=== PATIENT | male | born 1970 | race Caucasian/White ===

== ENCOUNTER → 2016-08-15 | Outpatient (CLI) | payer BC ==
--- NOTE | 2016-08-15 19:44 | CONS ---
DATE OF CONSULTATION: 08/15/2016 CONSULTATION/NEW PATIENT EVALUATION HISTORY OF PRESENT ILLNESS/SLEEP-WAKE EVALUATION: 46-year-old gentleman who has been evaluated in the sleep center for obstructive sleep apnea-hypopnea syndrome. SLEEP SCHEDULE: Patient had been diagnosed with obstructive sleep apnea about 12 years ago. At that time was started on treatment with CPAP but for a different reasons was not able to use it and quit at about 7 years ago. Presently, his sleep schedule is from 10:00 p.m. until 6:00 a.m. basically 7 days a week. FALLING ASLEEP: Sometimes he has problem with falling asleep. He has a TV set in bedroom sometimes keeps a TV while he is sleeping. DURING SLEEP: He sleeps in different positions including side and sometimes in the chair. He wakes up from sleep up to 6 times with up to 4 episodes of nocturia. He snores, has episodes of stopped breathing, witnessed episodes of stopped breathing by his , awakenings with a dry mouth. DURING THE DAY/WAKE STATE: In the morning he wakes up tired, has difficulties to pay attention, falling asleep during the day, has problems with memory, concentration, irritability, depression, and anxiety. [place] Sleepiness Scale significantly increased to 12. PAST MEDICAL HISTORY: Positive for diabetes, hyperlipidemia, knee arthritis, headaches, acid reflux. Neck pain and back pain. Left-sided spontaneous pneumothorax x2 in 1990. PAST SURGICAL HISTORY: Neck surgery, surgery for pneumothorax, shoulder surgery for rotator cuff, on the left side. MEDICATIONS: 1. ( ). 2. Janumet. 3. Simvastatin. 4. Lisinopril. 5. Fluticasone spray. 6. Multivitamins. 7. Cyclobenzaprine. 8. Omeprazole. SOCIAL HISTORY: Positive for smoking less than 1 pack a day for 5 years; quit in 1990, alcohol consumption rarely. REVIEW OF SYSTEMS: Awakenings from sleep, sleepiness during the day, pain in the back of the neck. No fevers. No double vision. No recent chest pain. No shortness of breath. No abdominal pain. No bleeding episodes. No blood in urine. No seizure episodes. FAMILY HISTORY: Hypertension, heart problems, hyperlipidemia, arthritis, sinus headaches, sleep apnea, snoring, headaches, acid reflux, ulcers, diabetes, during sleep, restless legs. PHYSICAL EXAMINATION: 46-year-old gentleman without distress. BP 106/83, HR 79, RR 18, height 71 and 3 quarters, weight 240.4. BMI 32.8. Neck 17 inches in circumference. Temperature 97.9, oxygen saturation at room air 95%. HEENT: Oropharynx extremely low position of soft palate. Mallampati IV. Nose restriction of nasal breathing significantly on the left side, possibly nasal septum deviation. NECK: Supple. No JVD. Thyroid is not palpable. LUNGS: Clear to percussion and to auscultation. Good air exchange. No wheezing or rhonchi. HEART: S1, S2 regular. No murmurs, gallops or rubs. ABDOMEN: Slightly obese comparing. oft and nontender. Bowel sounds are present. No organomegaly appreciated. EXTREMITIES: No clubbing or cyanosis. AUTOMOTIVE TIRE TECHNICIAN: Awake, alert, and oriented x3. Cranial nerves 2 to 7 intact. There is no fasciculation or atrophy noted. No focal deficits observed. IMPRESSION: 1. Snoring, witnessed episodes of stopped breathing during sleep, extremely low position of soft palate, history of obstructive sleep apnea-hypopnea syndrome in the past, sleepiness, obstructive sleep apnea-hypopnea syndrome. 2. Obesity, body mass index of 32.8. 3. Diabetes mellitus. 4. Hyperlipidemia. 5. Knee arthritis. 6. Headaches. 7. Acid reflux. 8. Neck pain. 9. Back pain. 10. History of spontaneous pneumothorax x2 on the left side in 1990 status post surgical treatment. 11. Status post neck surgery. 12. Status post shoulder surgery in the left side for rotator cuff. PLAN: 1. Home sleep apnea test for evaluation of patient's breathing during sleep. 2. CPAP titration for evaluation of effective pressure for correction of respiratory abnormalities. I would not recommend out titration without machine because patient has history of spontaneous pneumothorax in the past. 3. Preferable position during sleep on the side. 4. No driving if patient feels any sleepiness. Patient is aware of civil and criminal liability for unsafe driving. 5. I will see patient for follow-up visit to explain results of the testing and following plan. Thank you for referring this patient for consultation. Sincerely, Moises Ramey MD, PhD, FAASM. Diplomat of [place] [employer], Sleep Medicine Board by [place] [employer] Board of [employer] Medicine Quality Assurance Manager of [facility] [place]
== END | disposition home or self-care (01) ==
LOC: SLEEP 16:04
PROVIDERS: ATTEND Internal Medicine
DX: G47.33 Obstructive sleep apnea (adult) (pediatric) (principal); E66.9 Obesity, unspecified; Z68.32 Body mass index [BMI] 32.0-32.9, adult; E11.9 Type 2 diabetes mellitus without complications; E78.5 Hyperlipidemia, unspecified; M17.0 Bilateral primary osteoarthritis of knee; R51 Headache; K21.9 Gastro-esophageal reflux disease without esophagitis; M54.2 Cervicalgia; M54.9 Dorsalgia, unspecified; Z98.890 Other specified postprocedural states; Z79.899 Other long term (current) drug therapy; Z87.898 Personal history of other specified conditions
CPT/HCPCS: 99211

== ENCOUNTER → 2016-12-12 | Outpatient (CLI) | payer BC ==
--- NOTE | 2016-12-12 17:26 | PN ---
46-year-old gentleman who has been followed in the sleep center for treatment of severe obstructive sleep apnea-hypopnea syndrome. Recently patient had diagnostic sleep study and CPAP titration and I discussed results of sleep test with patient in detail. He has severe obstructive sleep apnea and on CPAP at 14 cm of water patient's respiration was on control. With lower pressure, patient continued to have some abnormalities of respiration. He was started on treatment with a pressure at 9 cm of water, but patient continued to have respiratory abnormalities and pressure was adjusted up to 11 cm of water. With this pressure, patient came for appointment. I checked his CPAP unit. Pressure was 11 cm of water. Leak 28 liters per minute and with this pressure, apnea-hypopnea index reading is 15.7. Patient continues to wake up from sleep with choking and gasping for air and this is the reason why he cannot use machine well. Usage is only 7 out of 30 days and none of the days it was not used for more than 4 hours. Patient also has difficulties to breathe through the full face mask because according to him he could breathe only through the mouth and with this type of fullface mask which he has now, he cannot open his mouth during the sleep and he believes that also could be the reason for difficulties to breathe. MEDICATIONS: 1. ( ). 2. Janumet. 3. Simvastatin. 4. Lisinopril. 5. Fluticasone spray. 6. Cyclobenzaprine. 7. Omeprazole. [place] Sleepiness Scale is 13. During physical exam, the patient in no distress. VITAL SIGNS: BP 151/98, HR 64, RR 16. Weight 240, temperature 98.1. Oxygen saturation at room air 95%. Oropharynx, extremely low position of soft palate. Neck: Supple. No JVD. Thyroid is not palpable. LUNGS: Clear to percussion and to auscultation. Good air exchange. No wheezing or rhonchi. HEART: S1, S2 regular. No murmurs, gallops, or rubs. ABDOMEN: Soft and nontender. Bowel sounds are present. No organomegaly appreciated. EXTREMITIES: No clubbing or cyanosis. SALESPERSON WIGS: Awake, alert, and oriented x3. Cranial nerves 2 to 7 intact. There is no fasciculation or atrophy noted. No focal deficits observed. IMPRESSION: 1. Severe obstructive sleep apnea/hypopnea syndrome. Apnea-hypopnea index 36.3 with oxygen desaturation to 80% on control with CPAP at 14 cm of water by results of CPAP titration treatment. The patient was started at the lower pressure because of history of spontaneous pneumothorax but he continued to have abnormalities of respiration with a pressure 11 and wake up with choking, gasping for air, and could not use machine at that pressure. 2. History of spontaneous pneumothorax but after this diagnosis. Patient has history of using CPAP with quite high pressure around 18 without any problem related to the lungs. 3. Some ( ) during titration. 4. Obesity. 5. Diabetes mellitus. 6. Hyperlipidemia. 7. Knee arthritis. 8. Headaches. 9. Acid reflux. 10. Neck pain. 11. Back pain. PLAN: 1. I adjusted pressure in CPAP unit up to 14 cm of water. 2. Watching weight. 3. We will try Leona view full face mask. 4. No driving if feeling any sleepiness. 5. Sleep hygiene with regular time in bed for at least 8 hours. Thank you very much for allowing me to participate in the management of your patient. Sincerely, Moises Ramey MD, PhD, FAASM. Diplomat of [place] Board [employer] Medicine, Sleep Medicine Board by [place] [employer] [place] [employer] Medicine Technical Writer And Editor of [facility] [place]
== END | disposition home or self-care (01) ==
LOC: SLEEP 10:39
PROVIDERS: ATTEND Internal Medicine
DX: G47.33 Obstructive sleep apnea (adult) (pediatric) (principal); E66.9 Obesity, unspecified; E11.9 Type 2 diabetes mellitus without complications; E78.5 Hyperlipidemia, unspecified; M17.9 Osteoarthritis of knee, unspecified; K21.9 Gastro-esophageal reflux disease without esophagitis; Z79.51 Long term (current) use of inhaled steroids; Z79.899 Other long term (current) drug therapy

== ENCOUNTER → 2017-01-30 | Outpatient (CLI) | payer BC ==
--- NOTE | 2017-01-30 14:56 | PN ---
DATE OF SERVICE: 01/30/2017 A 46-year-old gentleman who has been followed in the Sleep Center for treatment of obstructive sleep apnea-hypopnea syndrome. During previous visit, on 12/12/2016, reading from the machine at the pressure of 11 cm of water showed apnea-hypopnea index of 15.7 and I adjusted pressure of the machine up to 14 cm of water following results of the titration. At that time, patient was not able to use machine because he continued to have breathing problems even while he used the machine. At the present time, he tried to use his machine but had problem related to the gas collection in his stomach, so he had difficulties. I checked his CPAP unit , CPAP pressure is 14 cm of water. Ramp time is 45 minutes. Usage is 9 nights of 30 nights but never above 4 hours. Average usage 1.3 hours. Leak is 23 L/ min. Apnea-hypopnea index although is in normal range 0.8. [place] sleepiness scale today is 15. MEDICATIONS: Janumet, lisinopril, simvastatin, fluticasone spray, cyclobenzaprine, omeprazole. During physical exam, patient in no distress. BP 140/86, HR 70, RR 16, weight 241, temp 98.0, oxygen saturation at room air 95 %. OROPHARYNX: Low position of soft palate. NECK: Supple, No JVD. Thyroid is not palpable. LUNGS: Clear to percussion and to auscultation. Good air exchange. No wheezing or rhonchi. HEART: S1, s2 regular. No murmurs, gallops or rubs. ABDOMEN: Soft and nontender. Bowel sounds are present. No organomegaly appreciated. EXTREMITIES: No clubbing or cyanosis. RESEARCH QUALITY ASSURANCE SPECIALIST: Awake, alert, and oriented x3. Cranial nerves 2 to 7 intact. There is no fasciculation or atrophy noted. No focal deficits observed. IMPRESSION: 1. Severe obstructive sleep apnea-hypopnea syndrome. Apnea-hypopnea index 36.3. At the pressure of 14 cm of water on CPAP, respiration normalized but patient developed gas collection in the stomach. 2. Obesity. 3. Diabetes mellitus. 4. History of spontaneous pneumothorax in the past. 5. Knee arthritis. 6. Headaches. 7. Acid reflux. 8. Neck pain. 9. Back pain. PLAN: 1. I decreased pressure in his CPAP unit down to 12 cm of water because previously patient was at pressure of 11 and continued to have significant respiratory abnormalities. 2. Losing weight. 3. Sleep hygiene with regular time in bed for at least 8 hours. 4. No driving if feeling any sleepiness. 5. Followup visit in 1 to 2 months. Thank you very much for allowing me to participate in the management of your patient. Sincerely, Moises Ramey MD, PhD, FAASM. Diplomat of [place] [employer], Sleep Medicine Board by [place] [employer] [place] [employer] Audiology Director of [facility] [place] [facility]
== END | disposition home or self-care (01) ==
LOC: SLEEP 13:08
PROVIDERS: ATTEND Internal Medicine
DX: G47.33 Obstructive sleep apnea (adult) (pediatric) (principal); E66.9 Obesity, unspecified; E11.9 Type 2 diabetes mellitus without complications; R51 Headache; K21.9 Gastro-esophageal reflux disease without esophagitis; M54.2 Cervicalgia; M54.9 Dorsalgia, unspecified; M13.869 Other specified arthritis, unspecified knee

== ENCOUNTER → 2017-03-20 | Outpatient (CLI) | payer BC ==
--- NOTE | 2017-03-20 22:41 | PN ---
PROGRESS NOTE DATE OF SERVICE: 03/20/2017 This patient is a 46-year-old gentleman who has been followed in the sleep center for treatment of obstructive sleep apnea-hypopnea syndrome. The patient was started on treatment with CPAP several months ago; originally when treatment was started, he developed some problems with gas feeling in the stomach. That was at the pressure of 14 cm of water. Subsequently during the last visit, which was 2 months ago, I decreased the pressure from 14 cm of water down to 12 cm of water. For the first 2 months at that pressure, the patient felt very well and slept well. He did not have any gas problems. But then he started to wake up choking and gasping for air and subsequently stopped using his machine. I checked his CPAP unit today. He used the equipment for 8 nights out of 30 nights for the last month; the pressure is 12 cm of water. Leak is 13 L/minute, which is acceptable. Apnea-hypopnea index increased to 9.9; during the previous visit, at the pressure of 14, it was only 0.8. CURRENT MEDICATIONS: 1. Janumet. 2. Lisinopril. 3. Simvastatin. 4. Fluticasone spray. 5. ( ). 6. Omeprazole. [place] Sleepiness Scale is 15. PHYSICAL EXAM: Patient is in no distress. VITAL SIGNS: BP 143/93, HR 82, RR 16, height 6 feet 0 inches, weight 243, BMI 32.9, temperature 97.9, oxygen saturation at room air 97%. HEENT: PERRLA, EOMI. Evaluation of oropharynx showed tongue protrudes midline; low position of soft palate. NECK: Supple. No JVD. Thyroid is not palpable. LUNGS: Clear to percussion and to auscultation. Good air exchange. No wheezing or rhonchi. HEART: S1, S2 irregularly irregular. ABDOMEN: Soft, non-tender. Bowel sounds present. EXTREMITIES: No clubbing or cyanosis. COMPOSER TEACHING ARTIST: Awake, alert and oriented x3. Cranial nerves 2 to 7 intact. There is no fasciculation or atrophy noted. No focal deficits observed. IMPRESSION: 1. Severe obstructive sleep apnea-hypopnea syndrome, apnea-hypopnea index 36.3. At the pressure of 12 cm of water, no gas collection in the stomach, but it is not enough for normalization of patient's breathing during sleep. 2. Obesity. 3. Diabetes. 4. History of spontaneous pneumothorax in the past. 5. Knee arthritis. 6. Headaches. 7. Acid reflux. 8. Neck pain. 9. Back pain. PLAN: 1. I will increase pressure to 13 cm of water. 2. Watching and losing weight. 3. Sleep hygiene with regular time in bed for at least 8 hours. 4. No driving if feeling any sleepiness. 5. Follow-up visit in 2 months. Thank you very much for allowing me to participate in the management of your patient. Sincerely, Moises Ramey MD, PhD, FAASM Diplomat of [place] [employer] Specialties [place] Board of Internal Medicine Corporate Librarian of [facility] [place] MMODL / TARIKN: [id number] /
== END ==
LOC: SLEEP 14:53
PROVIDERS: ATTEND Internal Medicine
DX: G47.33 Obstructive sleep apnea (adult) (pediatric) (principal); E66.9 Obesity, unspecified; E11.9 Type 2 diabetes mellitus without complications; M17.9 Osteoarthritis of knee, unspecified; K21.9 Gastro-esophageal reflux disease without esophagitis; R51 Headache; M54.2 Cervicalgia; M54.9 Dorsalgia, unspecified; J93.9 Pneumothorax, unspecified; Z79.899 Other long term (current) drug therapy

== ENCOUNTER → 2017-07-14 | Outpatient (CLI) | payer BC ==
--- NOTE | 2017-07-14 08:31 | CT ---
EXAMINATION TYPE: CT sinus wo con DATE OF EXAM: 07/14/2017 COMPARISON: NONE HISTORY: Patient complains of difficulty breathing while sleeping even with cpap machine. CT DLP: 702.3 mGycm. Automated Exposure Control for Dose Reduction was Utilized. TECHNIQUE: CT scan of the sinuses is performed without contrast, axial images are obtained, coronal r eformatted images are also reviewed. FINDINGS: The paranasal sinuses including the frontal, ethmoid, sphenoid, and maxillary sinuses bila terally are well-aerated without abnormal opacification. The ostiomeatal complex is patent bilateral ly on the coronal images. Visualized portion of mastoid air cells show no abnormal opacification. The globes are intact bilate rally. There is asymmetric appearance of the posterior nasopharynx on the right. Recommend direct visualizat ion. Small burton bullosa on the left. Suggestion of a Lillian cell. IMPRESSION: 1. No diagnostic evidence of sinusitis 2. There is asymmetry of the nasopharynx more prominent on the right correlate with direct visualizat ion to exclude mucosal lesion.
== END | disposition home or self-care (01) ==
LOC: RADCTMAIN 07:58
PROVIDERS: ATTEND Otolaryngology
DX: J32.9 Chronic sinusitis, unspecified (principal)
CPT/HCPCS: 70486

== ENCOUNTER 2017-08-20 11:55 | Day surgery (SDC) | payer BC ==
[2017-08-13 09:35] VITALS: BMI 33.2
[~2017-08-20 11:55] MED LIST: DEXAMETHASONE SOD PHOSPHATE 10 MG/ML 1 ML VIAL IV ONE; DEXAMETHASONE SOD PHOSPHATE 4 MG/ML 1 ML VIAL IV ONE; LACTATED RINGERS 1,000 ML IV SCH; MIDAZOLAM 2 MG/2 ML VIAL IV PRN; ONDANSETRON 4 MG/2 ML VIAL IVP ONE; ceFAZolin 1,000 MG in DEXTROSE/WATER 1 50ML.BAG IV ONE
[2017-08-20 12:54] VITALS: TEMP 98
[2017-08-20] MEDS: OXYMETAZOLINE 0.05% NASL SPRAY 1 SPRAY BOTTLE NASAL ONE ×5 (13:00→13:20)
[2017-08-20] MEDS ORDERED: LIDOCAINE 1% 20 ML VIAL (10MG/ML) FOR IV START INTRADERMA ONE (13:00)
[2017-08-20 13:14] LABS: Glucose,Whole Blood 126 mg/dL (75-99)
[2017-08-20] MEDS ORDERED: FAMOTIDINE 20 MG/2 ML VIAL IV ONE (13:15)
[2017-08-20] MEDS ORDERED: PHENYLEPHRINE-0.9% NACL SYG 1 MG/10 ML SYRINGE ONE (13:24)
[2017-08-20] MEDS ORDERED: SUCCINYLCHOLINE CHLORIDE 100 MG/5 ML SYR IV ONE (13:24)
[2017-08-20] MEDS ORDERED: DEXAMETHASONE SOD PHOS (MDV) 100 MG/10 ML VIAL ONE (13:24)
[2017-08-20] MEDS ORDERED: LIDOCAINE 1% INJ 10MG/ML (20 ML MDV) ONE (13:24)
[2017-08-20] MEDS ORDERED: fentaNYL (PF) 50 MCG/ML 2 ML AMP ONE (13:24)
[2017-08-20] MEDS ORDERED: PROPOFOL 10 MG/ML 20 ML VIAL IV ONE (13:24)
[2017-08-20] MEDS ORDERED: SODIUM CHLORIDE 0.9% 50 ML with ceFAZolin 1,000 MG IV ONE ×2 (13:24)
[2017-08-20] MEDS ORDERED: MIDAZOLAM 2 MG/2 ML VIAL ONE (13:24)
[2017-08-20] MEDS ORDERED: ePHEDrine SULFATE/0.9% NACL/PF 50 MG/5 ML SYRINGE IV ONE (13:24)
[2017-08-20] MEDS ORDERED: LIDOCAINE-EPINEPHRINE (PF) 5 ML AMPUL SUBMUCOSAL ONE (13:39)
[2017-08-20] MEDS ORDERED: BACITRACIN 500 UNIT/GM OINT 28.4 GM TUBE TOPICAL ONE (13:51)
[2017-08-20] MEDS ORDERED: LACTATED RINGERS 1,000 ML IV ONE (14:32)
--- NOTE | 2017-08-20 14:46 | P.OP ---
Date of Procedure: 08/20/17 Preoperative Diagnosis: Deviated nasal septum Inferior turbinate hypertrophy Obstructive sleep apnea Adenotonsillar hypertrophy Postoperative Diagnosis: Same Procedure(s) Performed: Septoplasty Outfracture and submucous resection inferior turbinates Adenoidectomy Tonsillectomy Uvulopalatopharyngoplasty Anesthesia: MARK Surgeon: Singh Mcwilliams Estimated Blood Loss (ml): 20 Pathology: other (Nasal septal bone and cartilage tonsils uvula) Condition: stable Disposition: PACU Indications for Procedure: This is a 41-year-old white male with nasal airway obstruction and obstructive sleep apnea. He has some asymmetry on a scan of the nasopharynx Operative Findings: Septum deviated to the left the inferior turbinates hypertrophy bilaterally. The tonsils are +3 bilaterally. The uvula and soft palate are redundant and low -lying. Nasopharynx showed mild adenoid hypertrophy which was uniform and was very mild and it was elected to ablate the adenoid tissue with suction cautery as there was actually not enough tissue to be biopsy. Description of Procedure: The patient was brought in the operative suite and placed in a supine position. The patient underwent induction of general anesthesia with oral endotracheal intubation without difficulty. The patient was prepped and draped in usual aseptic fashion. 1% lidocaine with 1 100,000 epinephrine was infused submucosally both sides nasal septum at all this was taking vasoconstrictive effect the inferior transfer infractured with Elba elevator partial submucous resection inferior turbinates performed with Coblator ablating a portion submucosal soft tissue. The inferior turbinates were then outfractured with the Elba elevator. A left hemitransfixion incision was made with the mucoperichondrial and mucoperiosteal flap flap on the left elevated. Bony cartilaginous junction was disarticulated and the mucoperiosteal flap on the right was elevated. Bony nasal septal deformities were removed Naresh forceps. An inferior cartilaginous strip was removed leaving a full 1.5 cm caudal strut. Checking intranasally this corrected the nasoseptal deformities and the hemitransfixion incision was closed with a running 4-0 chromic suture. Bilateral Childs airway splints were placed and sutured trans-septally with a 4- 0 Vicryl suture. The McIvor mouth gag was placed. The soft palate was palpated and no submucous cleft was noted. Red Vega catheter was placed through the right nasal cavity and pulled through the oropharynx for soft palate retraction. Nasopharynx was examined with mirror exam and minimal adenoid tissue was noted which appeared symmetric. This was therefore vaporized with suction cautery. The catheter was removed. The left tonsil was grasped with curved Allis clamp and dissected from the tonsillar fossa in a superior to inferior direction using both blunt and electrocautery dissection until the tonsil was removed. Once tonsils removed hemostasis gained with suction cautery. Attention was turned to the right where the right tonsil was removed exactly as the left had been. Once this tonsils removed hemostasis gained to suction cautery. Once hemostasis was obtained and remained good in both tonsillar fossa the uvula was grasped and retracted anteriorly to ascertain the natural crease and the lower palate and at that level the uvula and a thin portion of the mucosa of the soft palate was removed. The muscular layer was left intact. Hemostasis was gained with suction cautery. This dissection was performed with cold technique. The submucosal and mucosal layers of the tonsillar fossa and soft palate were then closed with simple interrupted 3-0 Vicryl suture. Good hemostasis was noted. Once this completed the patient was suctioned in oral gastric fashion the McIvor mouth gag was removed and the patient was allowed to emerge from general anesthesia having tolerated procedure well was extubated in the operating suite and transferred to the postop recovery area in satisfactory condition.
[2017-08-20] MEDS: HYDROmorphone 0.5 MG/0.5 ML SYRINGE IVP PRN ×3 (14:55→15:00)
[2017-08-20] MEDS ORDERED: ONDANSETRON 4 MG/2 ML VIAL IVP ONE (14:55)
[2017-08-20] MEDS ORDERED: LABETALOL SYRINGE 5 MG/ML IVP ONE ×2 (15:13→15:40)
[2017-08-20] MEDS ORDERED: hydrALAZINE HCL 20 MG/ML 1 ML VIAL IVP ONE ×2 (15:16→15:22)
[2017-08-20] MEDS ORDERED: ENALAPRILAT 1.25 MG/ML 1 ML VIAL IVP ONE (15:31)
[2017-08-20] MEDS ORDERED: HYDROcodone/APAP 7.5-325MG 1 EACH TAB PO ONE (16:32)
[2017-08-20 17:56] VITALS: BP 163/101; PULSE 72
[2017-08-20 18:15] VITALS: RESP 20
== END 2017-08-20 18:20 | disposition home or self-care (01) ==
LOC: OR 11:55
PROVIDERS: ATTEND Otolaryngology
DX: J34.2 Deviated nasal septum (principal); J34.3 Hypertrophy of nasal turbinates; G47.33 Obstructive sleep apnea (adult) (pediatric); J35.3 Hypertrophy of tonsils with hypertrophy of adenoids; K13.79 Other lesions of oral mucosa; I10 Essential (primary) hypertension; K21.9 Gastro-esophageal reflux disease without esophagitis; E11.9 Type 2 diabetes mellitus without complications; H91.90 Unspecified hearing loss, unspecified ear; E78.00 Pure hypercholesterolemia, unspecified; E78.5 Hyperlipidemia, unspecified; Z79.84 Long term (current) use of oral hypoglycemic drugs; Z79.891 Long term (current) use of opiate analgesic; Z79.51 Long term (current) use of inhaled steroids; Z79.899 Other long term (current) drug therapy; Z87.891 Personal history of nicotine dependence
CPT/HCPCS: 30520; 30140; 42145; J2250; J0360; J1100 ×2; J2405; J2001; J3010; J0690; J2370; J0330; J2704; J1170; 88300; 88302; 88304

== ENCOUNTER 2018-01-06 06:50 | Day surgery (SDC) | payer BC ==
[2018-01-05 09:13] VITALS: BMI 31.8
[~2018-01-06 06:50] MED LIST changes: -DEXAMETHASONE SOD PHOSPHATE 10 MG/ML 1 ML VIAL IV ONE; -DEXAMETHASONE SOD PHOSPHATE 4 MG/ML 1 ML VIAL IV ONE; -LACTATED RINGERS 1,000 ML IV SCH; +LIDOCAINE 1% 20 ML VIAL (10MG/ML) FOR IV START INTRADERMA PRN; -MIDAZOLAM 2 MG/2 ML VIAL IV PRN; -ONDANSETRON 4 MG/2 ML VIAL IVP ONE; -ceFAZolin 1,000 MG in DEXTROSE/WATER 1 50ML.BAG IV ONE
[2018-01-06] MEDS: LACTATED RINGERS 1,000 ML IV SCH ×3 (07:25→07:40)
[2018-01-06 07:32] VITALS: RESP 16; TEMP 97.8
[2018-01-06 07:38] LABS: Glucose,Whole Blood 150 mg/dL (75-99)
[2018-01-06] MEDS ORDERED: fentaNYL (PF) 50 MCG/ML 2 ML AMP ONE (07:45)
[2018-01-06] MEDS ORDERED: PROPOFOL 10 MG/ML 20 ML VIAL IV ONE (07:45)
[2018-01-06] MEDS ORDERED: LIDOCAINE 1% INJ 10MG/ML (20 ML MDV) ONE (07:45)
--- NOTE | 2018-01-06 08:16 | P.PCN ---
Date of Procedure: 01/06/18 Procedure(s) Performed: Procedure: Colonoscopy and biopsy. Preoperative diagnosis: Screening for neoplasia. Postoperative diagnosis: Diminutive polyp around the hepatic flexure biopsied, otherwise, exam to the cecum within normal limits. Preparation: HalfLytely prep. Sedation: Was provided by anesthesia. Brief clinical history: The patient is a 47-year-old male who is scheduled for this evaluation for screening for neoplasia age being his risk factor. He has no abdominal complaints, bleeding or anemia. No family history of colon cancer. This would be his first colonoscopy. Procedure: With the patient on his left lateral decubitus position and after informed consent and adequate sedation, the perianal area was inspected and it did not show any fissures or fistulas. There were no masses felt on digital rectal examination. The Olympus CFQ 160L video colonoscope was then inserted in the rectum in the usual fashion and advanced to the cecum. The mucosa appeared healthy. There was a diminutive polyp around the hepatic flexure which I biopsied but there were no large polyps or cancer. No obvious diverticular disease or other pathology. I retroflexed the endoscope in the rectum before the endoscope was withdrawn. The patient tolerated the procedure well. Plan: The patient was reassured. I anticipate repeating this examination in 5 years. He will follow up with you as planned.
[2018-01-06 08:28] VITALS: BP 118/80; PULSE 61
[2018-01-06 08:48] LABS: Glucose,Whole Blood 184 mg/dL (75-99)
== END 2018-01-06 09:00 | disposition home or self-care (01) ==
LOC: ORWHC2ENDO 06:50
DX: Z12.11 Encounter for screening for malignant neoplasm of colon (principal); D12.3 Benign neoplasm of transverse colon; E11.9 Type 2 diabetes mellitus without complications; K21.9 Gastro-esophageal reflux disease without esophagitis; I10 Essential (primary) hypertension; E78.5 Hyperlipidemia, unspecified; M19.90 Unspecified osteoarthritis, unspecified site; G47.33 Obstructive sleep apnea (adult) (pediatric); K76.0 Fatty (change of) liver, not elsewhere classified; G43.909 Migraine, unspecified, not intractable, without status migrainosus; Z79.899 Other long term (current) drug therapy; Z87.891 Personal history of nicotine dependence
CPT/HCPCS: 88305; 45380; J2001; J3010; J2704

== ENCOUNTER → 2018-08-03 | Outpatient (CLI) | payer BC ==
[2018-08-03 17:17] LABS: Blood Urea Nitrogen 9 mg/dL (9-20)
--- NOTE | 2018-08-03 22:37 | MR ---
EXAMINATION TYPE: MR lumbar spine wo con DATE OF EXAM: 08/03/2018 COMPARISON: NONE HISTORY: LBP, RLE radiculopathy x 6 mos, no trauma TECHNIQUE: Multiplanar, multisequence imaging of the lumbar spine is performed without IV contrast. FINDINGS: Sagittal images of the lumbar spine show vertebral body heights and alignment to appear sat isfactory. The intervertebral discs demonstrate normal heights and hydration. No suspicious posterior disc herniations are seen on sagittal images. The conus medullaris is normal in position and signal ending at mid L1 level. The bone marrow signal intensity is within normal limits. No significant spu rring is seen. Axial images show no focal disc disease, or facet degenerative change at any lumbar level. There is no spinal canal stenosis, neural foraminal narrowing, or evidence of nerve root compromise. IMPRESSION: Fairly unremarkable study. No suspicious finding is seen to account for patient's pain an d right sided radiculopathy type symptoms.
--- NOTE | 2018-08-03 22:42 | MR ---
MRI CERVICAL SPINE: CLINICAL HISTORY: Cervicalgia and radiculopathy status post arthrodesis per order. Persistent neck pa in causing pain or numbness into bilateral arms and fingers for 6 months per patient. TECHNIQUE: Multiplanar, multisequence imaging of the cervical spine is performed without and with IV contrast, 10 cc of gadolinium was given intravenously. COMPARISON: None. FINDINGS: Sagittal images of the cervical spine show the craniocervical junction to appear within nor mal limits. The cervical and upper thoracic spinal cord is normal in course and caliber. Subtle slig ht increased T2 signal centered near C6 level sagittal image 7 may be artifact as there is some motio n artifact degradation present. Vertebral alignment is straightened. There is artifact from anterior fusion plate and disc material C4-T1 levels. Vertebral body heights and disc space heights above and below surgical levels are normal. No suspicious posterior disc herniations are present on sagittal i mages. The bone marrow signal intensity is within normal limits above and below surgical levels. No suspicious enhancement is noted. Axial images at the C2-C3 level show uncovertebral facet degenerative changes bilaterally causing mil d bilateral neural foraminal narrowing. Spinal canal is preserved. Axial images at C3-C4 level show uncovertebral facet degenerative changes bilaterally causing mild/mo derate left and mild right-sided neural foraminal narrowing. There is right paracentral disc protrusi on mildly effacing anterior thecal sac. Axial images at C4-C5 level show artifact from surgical hardware with mild bilateral neural foraminal narrowing due to marginal spurring. Axial images at C5-C6 level which artifact from surgical hardware, there is mild left-sided neural fo raminal narrowing due to marginal spurring. Axial images at C6-C7 level show mild right greater than left bilateral neural foraminal narrowing du e to marginal spurring. Artifact from surgical hardware is noted. Axial images at C7-T1 level show artifact from surgical hardware. There is right paracentral spur or ossific projection suspected axial image 18 effacing anterolateral thecal sac, bilateral neural malcolm eric are patent. Axial images at T1-T2 level are felt within normal limits. Thyroid gland is felt within normal limits. IMPRESSION: Postsurgical change C4-T1 level with satisfactory and straightened alignment.
== END | disposition home or self-care (01) ==
LOC: RADMRIMAIN 16:48
PROVIDERS: ATTEND Orthopaedic Surgery Orthopaedic Surgery of the Spine
DX: M54.5 Low back pain (principal); I10 Essential (primary) hypertension; M99.71 Connective tissue and disc stenosis of intervertebral foramina of cervical region; E66.3 Overweight; Z98.1 Arthrodesis status; Z68.32 Body mass index [BMI] 32.0-32.9, adult
CPT/HCPCS: 82565; 84520; 72148; 72156; 36415; A9585

== ENCOUNTER 2018-11-04 14:40 | Emergency (ER) | payer BC ==
[2018-11-04 15:03] VITALS: RESP 18
[2018-11-04] MEDS ORDERED: SODIUM CHLORIDE 0.9% 1,000 ML IV STA (15:33)
[2018-11-04 16:00] LABS: Basophils # (A) 0.1 k/uL (0-0.2); Basophils % (A) 1 %; Eosinophils # (A) 0.2 k/uL (0-0.7); Eosinophils % (A) 3 %; HGB 14.6 gm/dL (13.0-17.5); Lymphocytes # (A) 2.2 k/uL (1.0-4.8); Lymphocytes % (A) 31 %; MCH 28.4 pg (25.0-35.0); MCHC 33.9 g/dL (31.0-37.0); MCV 83.8 fL (80.0-100.0); Mean Platelet Volume 7.6; Monocytes # (A) 0.5 k/uL (0-1.0); Monocytes % (A) 7 %; Neutrophils # (A) 3.9 k/uL (1.3-7.7); Neutrophils % (A) 55 %; Platelet Count 272 k/uL (150-450); RBC 5.13 m/uL (4.30-5.90); RDW 13.8 % (11.5-15.5); WBC 7.1 k/uL (3.8-10.6)
[2018-11-04 16:09] LABS: ALT 62 U/L (21-72); AST 38 U/L (17-59); Albumin 4.3 g/dL (3.5-5.0); Alkaline Phosphatase 97 U/L (38-126); Amylase 58 U/L (30-110); Anion Gap 8 mmol/L; Blood Urea Nitrogen 11 mg/dL (9-20); Calcium 9.6 mg/dL (8.4-10.2); Carbon Dioxide 26 mmol/L (22-30); Chloride 106 mmol/L (98-107); Glucose 98 mg/dL (74-99); Lipase 136 U/L (23-300); Potassium 4.4 mmol/L (3.5-5.1); Sodium 140 mmol/L (137-145); Total Bilirubin 0.5 mg/dL (0.2-1.3); Total Protein 6.9 g/dL (6.3-8.2)
[2018-11-04 16:57] LABS: Appearance,Urine Clear (Clear); Bilirubin,Urine Negative (Negative); Blood,Urine Negative (Negative); Color,Urine Yellow; Glucose,Urine (UA) 4+ (Negative); Ketones,Urine Negative (Negative); Leukocyte Esterase,Urine Negative (Negative); Nitrite,Urine Negative (Negative); Protein,Urine Negative (Negative); Specific Gravity,Urine 1.041 (1.001-1.035); Urobilinogen,Urine <2.0 mg/dL (<2.0)
--- NOTE | 2018-11-04 16:58 | CT ---
EXAMINATION TYPE: CT abdomen pelvis w con DATE OF EXAM: 11/04/2018 COMPARISON: None HISTORY: RLQ pain with diarrhea CT DLP: 1444.6 mGycm Automated exposure control for dose reduction was used. TECHNIQUE: Helical acquisition of images was performed from the lung bases through the pelvis. CONTRAST: Performed without Oral Contrast and with IV Contrast, patient injected with 100 mL of Isovu e 300. FINDINGS: LUNG BASES: No significant abnormality is appreciated. LIVER/GB: No significant abnormality is appreciated. PANCREAS: No significant abnormality is seen. SPLEEN: No significant abnormality is seen. ADRENALS: No significant abnormality is seen. KIDNEYS: No significant abnormality is seen. FREE AIR: No free air is visualized. RETROPERITONEAL ADENOPATHY: None visualized REPRODUCTIVE ORGANS: No significant abnormality is seen URINARY BLADDER: No significant abnormality is seen. PELVIC ADENOPATHY: None visualized. OSSEOUS STRUCTURES: No significant abnormality is seen. BOWEL: No significant abnormality is seen. Appendix has normal appearance. Terminal ileum unremarkab le. OTHER: No acute vascular finding. IMPRESSION: NO ACUTE PROCESS.
--- NOTE | 2018-11-04 17:28 | ED ---
Abdominal Pain HPI - General Chief Complaint: Abdominal Pain Stated Complaint: Side Abd Pain Time Seen by Provider: 11/04/18 15:22 Source: patient, RN notes reviewed, old records reviewed Mode of arrival: ambulatory Limitations: no limitations - History of Present Illness Initial Comments: this is a 48-year-old male the ER for evaluation. Said patient resents for evaluation of continuing right lower quadrant abdominal pain. Patient without any other symptoms, no nausea vomiting no fevers. No change in appetite, no diarrhea. No loss of bowel was. Patient has no prior surgical history. Patient does have medical history with no prior colonoscopy. No prior history of similar pain, does admit to recent work-related injury, some heavy lifting w ith the cause of some side pain, this progresses abdominal pain. Patient concern for appendicitis, patient did see primary care doctor who sent him in for further evaluation MD Complaint: abdominal pain -: days(s) Location: RLQ Radiation: R flank Migration to: no migration Severity: moderate Severity scale (1-10): 4 Quality: aching Improves With: nothing Worsens With: nothing Associated Symptoms: denies other symptoms - Related Data Home Medications Medication Instructions Recorded Confirmed Fluticasone Propionate [Flonase 1 spray EA NOSTRIL DAILY PRN 08/13/17 11/04/18 Allergy Relief] Lisinopril [Zestril] 20 mg PO DAILY 08/13/17 11/04/18 Multivitamin [Men's Multi-Vitamin] 1 tab PO DAILY 08/13/17 11/04/18 Nabumetone [Relafen] 750 mg PO BID 08/13/17 11/04/18 Omeprazole 40 mg PO DAILY 08/13/17 11/04/18 Simvastatin 40 mg PO DAILY 08/13/17 11/04/18 sitaGLIPtin PHOS/metFORMIN HCL 1 tab PO BID 08/13/17 11/04/18 [Janumet 50-1,000 mg Tablet] Tapentadol HCl [Nucynta] 100 mg PO Q8H PRN 01/05/18 11/04/18 Cholecalciferol [Vitamin D3] 1,000 unit PO DAILY 11/04/18 11/04/18 Empagliflozin [Jardiance] 25 mg PO DAILY 11/04/18 11/04/18 Glucosamine/Chondr Grover A Sod [Osteo 1 tab PO BID 11/04/18 11/04/18 Bi-Flex Caplet] Naproxen Sodium [Aleve] 220 mg PO Q12H PRN 11/04/18 11/04/18 Allergies Allergy/AdvReac Type Severity Reaction Status Date / Time No Known Allergies Allergy Verified 11/04/18 16:09 Review of Systems ROS Statement: Those systems with pertinent positive or pertinent negative responses have been documented in the HPI. ROS Other: All systems not noted in ROS Statement are negative. Past Medical History Past Medical History: Diabetes Mellitus, GERD/Reflux, Hyperlipidemia, Hypertension, Osteoarthritis (OA), Sleep Apnea/CPAP/BIPAP Additional Past Medical History / Comment(s): migranes, fatty liver, spontaneous pneumothorax History of Any Multi-Drug Resistant Organisms: None Reported Past Surgical History: Hernia Repair, Orthopedic Surgery Additional Past Surgical History / Comment(s): neck surgery x4 , lung surgery for spontaneous pneumothorax, UPPP SX, Past Anesthesia/Blood Transfusion Reactions: No Reported Reaction Past Psychological History: Depression Smoking Status: Former smoker Past Alcohol Use History: Rare Past Drug Use History: None Reported - Past Family History Mother Family Medical History: No Reported History General Exam Limitations: no limitations General appearance: alert, in no apparent distress Head exam: Present: atraumatic, normocephalic, normal inspection Eye exam: Present: normal appearance, PERRL, EOMI. Absent: scleral icterus, conjunctival injection, periorbital swelling ENT exam: Present: normal exam, mucous membranes moist Neck exam: Present: normal inspection. Absent: tenderness, meningismus, lymph adenopathy Respiratory exam: Present: normal lung sounds bilaterally. Absent: respiratory distress, wheezes, rales, rhonchi, stridor Cardiovascular Exam: Present: regular rate, normal rhythm, normal heart sounds. Absent: systolic murmur, diastolic murmur, rubs, gallop, clicks GI/Abdominal exam: Present: soft, normal bowel sounds. Absent: distended, tenderness, guarding, rebound, rigid Extremities exam: Present: normal inspection, full ROM, normal capillary refill. Absent: tenderness, pedal edema, joint swelling, calf tenderness Back exam: Present: normal inspection Neurological exam: Present: alert, oriented X3, CN II-XII intact Psychiatric exam: Present: normal affect, normal mood Skin exam: Present: warm, dry, intact, normal color. Absent: rash Course Vital Signs 11/04/18 11/04/18 14:56 18:21 Temperature 98 F 97.8 F Pulse Rate 62 59 L Respiratory 18 18 Rate Blood Pressure 121/86 139/88 O2 Sat by Pulse 97 97 Oximetry - Reevaluation(s) Reevaluation #1: Medical record is reviewed and noncontributory Patient is abdominal pain well-controlled currently. Not requiring pain medication Medical Decision Making - Medical Decision Making 48 male the ER with nonspecific abdominal pain, labwork is normal, CT abdomen pelvis is negative for acute disease, patient continue follow-up with primary care for further evaluation - Lab Data Result diagrams: 11/04/18 15:44 11/04/18 15:44 Lab Results 11/04/18 11/04/18 11/04/18 Range/Units 15:44 15:44 15:44 WBC 7.1 (3.8-10.6) k/uL RBC 5.13 (4.30-5.90) m/uL Hgb 14.6 (13.0-17.5) gm/dL Hct 43.0 (39.0-53.0) % MCV 83.8 (80.0-100.0) fL MCH 28.4 (25.0-35.0) pg MCHC 33.9 (31.0-37.0) g/dL RDW 13.8 (11.5-15.5) % Plt Count 272 (150-450) k/uL Neutrophils % 55 % Lymphocytes % 31 % Monocytes % 7 % Eosinophils % 3 % Basophils % 1 % Neutrophils # 3.9 (1.3-7.7) k/uL Lymphocytes # 2.2 (1.0-4.8) k/uL Monocytes # 0.5 (0-1.0) k/uL Eosinophils # 0.2 (0-0.7) k/uL Basophils # 0.1 (0-0.2) k/uL Sodium 140 (137-145) mmol/L Potassium 4.4 (3.5-5.1) mmol/L Chloride 106 (98-107) mmol/L Carbon Dioxide 26 (22-30) mmol/L Anion Gap 8 mmol/L BUN 11 (9-20) mg/dL Creatinine 0.68 (0.66-1.25) mg/dL Est GFR (CKD-EPI)AfAm >90 (>60 ml/min/1.73 sqM) Est GFR (CKD-EPI)NonAf >90 (>60 ml/min/1.73 sqM) Glucose 98 (74-99) mg/dL Plasma Lactic Acid Jonathan 1.3 (0.7-2.0) mmol/L Calcium 9.6 (8.4-10.2) mg/dL Total Bilirubin 0.5 (0.2-1.3) mg/dL AST 38 (17-59) U/L ALT 62 (21-72) U/L Alkaline Phosphatase 97 (38-126) U/L Total Protein 6.9 (6.3-8.2) g/dL Albumin 4.3 (3.5-5.0) g/dL Amylase 58 (30-110) U/L Lipase 136 (23-300) U/L Urine Color Urine Appearance (Clear) Urine pH (5.0-8.0) Ur Specific [place] (1.001-1.035) Urine Protein (Negative) Urine Glucose (UA) (Negative) Urine Ketones (Negative) Urine Blood (Negative) Urine Nitrite (Negative) Urine Bilirubin (Negative) Urine Urobilinogen (<2.0) mg/dL Ur Leukocyte Esterase (Negative) 11/04/18 Range/Units 16:51 WBC (3.8-10.6) k/uL RBC (4.30-5.90) m/uL Hgb (13.0-17.5) gm/dL Hct (39.0-53.0) % MCV (80.0-100.0) fL MCH (25.0-35.0) pg MCHC (31.0-37.0) g/dL RDW (11.5-15.5) % Plt Count (150-450) k/uL Neutrophils % % Lymphocytes % % Monocytes % % Eosinophils % % Basophils % % Neutrophils # (1.3-7.7) k/uL Lymphocytes # (1.0-4.8) k/uL Monocytes # (0-1.0) k/uL Eosinophils # (0-0.7) k/uL Basophils # (0-0.2) k/uL Sodium (137-145) mmol/L Potassium (3.5-5.1) mmol/L Chloride (98-107) mmol/L Carbon Dioxide (22-30) mmol/L Anion Gap mmol/L BUN (9-20) mg/dL Creatinine (0.66-1.25) mg/dL Est GFR (CKD-EPI)AfAm (>60 ml/min/1.73 sqM) Est GFR (CKD-EPI)NonAf (>60 ml/min/1.73 sqM) Glucose (74-99) mg/dL Plasma Lactic Acid Jonathan (0.7-2.0) mmol/L Calcium (8.4-10.2) mg/dL Total Bilirubin (0.2-1.3) mg/dL AST (17-59) U/L ALT (21-72) U/L Alkaline Phosphatase (38-126) U/L Total Protein (6.3-8.2) g/dL Albumin (3.5-5.0) g/dL Amylase (30-110) U/L Lipase (23-300) U/L Urine Color Yellow Urine Appearance Clear (Clear) Urine pH 5.0 (5.0-8.0) Ur Specific [place] 1.041 H (1.001-1.035) Urine Protein Negative (Negative) Urine Glucose (UA) 4+ H (Negative) Urine Ketones Negative (Negative) Urine Blood Negative (Negative) Urine Nitrite Negative (Negative) Urine Bilirubin Negative (Negative) Urine Urobilinogen <2.0 (<2.0) mg/dL Ur Leukocyte Esterase Negative (Negative) - Radiology Data Radiology results: report reviewed, image reviewed Disposition Clinical Impression: Abdominal pain Disposition: HOME SELF-CARE Condition: Good Instructions (If sedation given, give patient instructions): Abdominal Pain (ED) Is patient prescribed a controlled substance at d/c from ED?: No Referrals: Bulmaro Little MD [Primary Care Provider] - 1-2 days
[2018-11-04 18:25] VITALS: BP 139/88; PULSE 59; TEMP 97.8
== END 2018-11-04 18:26 | disposition home or self-care (01) ==
LOC: EC 14:40
DX: R10.31 Right lower quadrant pain (principal); E11.9 Type 2 diabetes mellitus without complications; K21.9 Gastro-esophageal reflux disease without esophagitis; E78.5 Hyperlipidemia, unspecified; I10 Essential (primary) hypertension; G47.30 Sleep apnea, unspecified; M19.90 Unspecified osteoarthritis, unspecified site; Z79.84 Long term (current) use of oral hypoglycemic drugs; Z79.899 Other long term (current) drug therapy; Z87.891 Personal history of nicotine dependence; Z99.89 Dependence on other enabling machines and devices
CPT/HCPCS: 36415; 80053; 82150; 83605; 83690; 85025; 81003; 74177; 99284; 96360; 96361 ×2; Q9967; 96374

== ENCOUNTER → 2019-07-13 | Outpatient (CLI) | payer BC ==
--- NOTE | 2019-07-13 10:26 | CT ---
EXAMINATION TYPE: CT sinus wo con DATE OF EXAM: 07/13/2019 COMPARISON: 07/14/2017 HISTORY: Chronic sinusitis CT DLP: 596.5 mGycm CONTRAST: None The paranasal sinuses are examined in the axial plane at 2 mm thick sections. Reconstructed images i n the coronal plane were obtained. There is dental amalgam scatter artifact The maxillary sinuses are clear. The ethmoid air cells are clear. The sphenoid sinuses are clear. The frontal sinuses are clear. Lillian air cells are present. The septum is evaluated. There is septal deviation to the left. The ostiomeatal units are narrowed. Mastoid air cells are essentially out of the [id number]. Some fullness is present within the right torus tubarius with poor visualization of the fossa of Rosenmuller. Direct visualization is recommen ded. IMPRESSIONS: 1. Fullness within the torus tubarius and fossa of Rosenmuller on the right which may account for th e patient's symptoms. Direct visualization is recommended. 2. Paranasal sinuses are normal
== END | disposition home or self-care (01) ==
LOC: RADCTMAIN 07:54
PROVIDERS: ATTEND Family Medicine
DX: J32.9 Chronic sinusitis, unspecified (principal)
CPT/HCPCS: 70486

== ENCOUNTER 2019-10-16 09:46 | Inpatient (IN) | payer BC ==
[2019-10-16] MEDS ORDERED: SODIUM CHLORIDE 0.9% 1,000 ML IV STA (09:56)
[2019-10-16] MEDS ORDERED: ONDANSETRON 4 MG/2 ML VIAL IVP STA (09:56)
[2019-10-16 10:13] LABS: Glucose,Whole Blood 176 mg/dL (75-99)
--- NOTE | 2019-10-16 10:18 | ED ---
General Adult HPI - General Chief complaint: Dizziness Stated complaint: sob, diarrhea Time Seen by Provider: 10/16/19 09:50 Source: patient Mode of arrival: wheelchair Limitations: no limitations - History of Present Illness Initial comments: Dictation was produced using [employer] dictation software. please excuse any grammatical, word or spelling errors. This patient was cared for during a federal and state declared state of emergency secondary to Covid 19 Chief Complaint: 49-year-old male past medical history of diabetes, dyslipidemia hypertension and squamous cell cancer of the sinus presents with nausea, vomiting, shortness of breath History of Present Illness: Patient is a 41-year-old male he recently started chemo and radiation therapy by Dr. Loomis here locally. Patient was diagnosed with squamous cell cancer of the sinus. Patient has undergone 5 treatments of chemotherapy and radiation over the last 4 or 5 days. Patient states that 5 hours ago patient developed acute onset nausea and vomiting. Patient also sta melisa he feels short of breath and dizzy cold. Patient also diaphoretic. Prior to the onset of symptoms patient has been feeling well. Patient also complaints of paresthesias to the left lips, left arm and left lower extremity. Patient has a history of stroke. He feels generally weak. Denies any asymmetrical weakness in extremities. The ROS documented in this emergency department record has been reviewed and confirmed by me. Those systems with pertinent positive or negative responses have been documented in the HPI. All other systems are other negative and/or noncontributory. PHYSICAL EXAM: General Impression: Alert and oriented x3, not in acute distress, diaphoretic HEENT: Normocephalic atraumatic, extra-ocular movements intact, pupils equal and reactive to light bilaterally, dry mucous membranes Cardiovascular: Heart regular rate and rhythm Chest: Able to complete full sentences, no retractions, no tachypnea Abdomen: Bowel sounds present, abdomen soft, non-tender, non-distended, no organomegaly Musculoskeletal: Pulses present and equal in all extremities, no peripheral ed ronda Motor: no focal deficits noted Neurological: CN II-XII grossly intact, no focal motor deficits noted. Patient complains of sensory deficit to light touch of the entire left upper extremity, left lower extremity and perioral area Skin: Intact with no visualized rashes ED course: 49 y old male presents with nausea, vomiting and left-sided extremity paresthesias after recent chemo and radiation therapy. Signs upon arrival are within acceptable limits. Patient's initial NIH is technically 1 however his symptoms are subjective. Patient is not a TPA candidate. Laboratory evaluation obtained. Mild leukocytosis of 11.2, rest of CBC is unremarkable. Coag panel is negative. Metabolic panel shows sodium 131, no gap acidosis. Elevated BUN likely prerenal azotemia. Glucose 175. Rest metabolic panel is grossly unremarkable. Computed tomography scan of the brain is unremarkable. Chest x-ray is nonacute. Patient reevaluated at bedside. He states that his nausea is significantly B does report improvement of his paresthesias to his extremities. Since his sensory issues are asymmetrical there is concern of CVA. Patient treated with aspirin. Patient has no weakness to the left side he does have sensory issues only. He states that improved since being in the emergency department. During this current pandemic situation it's hospital policy to keep patient's with certain neurologic conditions that her hospital given that nearby hospitals with neurology service are not acc epting transfer patient's. Patient is made aware of this issue. He is agreeable to be admitted to hospital despite lack of neurology service. That his symptoms could represent stroke however neuropathy secondary to chemo and radiation therapy is also a consideration. Patient is agreeable for admission to our facility. he'll be admitted to Dr. James's service. Dr. James is willing to accept patients care. EKG interpretation: Ventricular rate 68, normal sinus rhythm, MS interval 150, QRS 114, QTc 433. No MS prolongation, no QTC prolongation, no ST or T-wave changes noted. No old EKG for comparison. Overall, this EKG is unremarkable - Related Data Home Medications Medication Instructions Recorded Confirmed Fluticasone Propionate [Flonase 1 spray EA NOSTRIL DAILY PRN 08/13/17 11/04/18 Allergy Relief] Lisinopril [Zestril] 20 mg PO DAILY 08/13/17 11/04/18 Multivitamin [Men's Multi-Vitamin] 1 tab PO DAILY 08/13/17 11/04/18 Nabumetone [Relafen] 750 mg PO BID 08/13/17 11/04/18 Omeprazole 40 mg PO DAILY 08/13/17 11/04/18 Simvastatin 40 mg PO DAILY 08/13/17 11/04/18 sitaGLIPtin PHOS/metFORMIN HCL 1 tab PO BID 08/13/17 11/04/18 [Janumet 50-1,000 mg Tablet] Tapentadol HCl [Nucynta] 100 mg PO Q8H PRN 01/05/18 11/04/18 Cholecalciferol [Vitamin D3] 1,000 unit PO DAILY 11/04/18 11/04/18 Empagliflozin [Jardiance] 25 mg PO DAILY 11/04/18 11/04/18 Glucosamine/Chondr Grover A Sod [Osteo 1 tab PO BID 11/04/18 11/04/18 Bi-Flex Caplet] Naproxen Sodium [Aleve] 220 mg PO Q12H PRN 11/04/18 11/04/18 Allergies Allergy/AdvReac Type Severity Reaction Status Date / Time No Known Allergies Allergy Verified 10/16/19 09:52 Review of Systems ROS Statement: Those systems with pertinent positive or pertinent negative responses have been documented in the HPI. ROS Other: All systems not noted in ROS Statement are negative. Past Medical History Past Medical History: Cancer, Diabetes Mellitus, GERD/Reflux, Hyperlipidemia, Hypertension, Osteoarthritis (OA), Sleep Apnea/CPAP/BIPAP Additional Past Medical History / Comment(s): migranes, fatty liver, spontaneous pneumothorax History of Any Multi-Drug Resistant Organisms: None Reported Past Surgical History: Hernia Repair, Orthopedic Surgery Additional Past Surgical History / Comment(s): neck surgery x4 , lung surgery for spontaneous pneumothorax, UPPP SX, Past Anesthesia/Blood Transfusion Reactions: No Reported Reaction Past Psychological History: Depression Smoking Status: Former smoker Past Alcohol Use History: Rare Past Drug Use History: None Reported - Past Family History Mother Family Medical History: No Reported History General Exam Limitations: no limitations Course Vital Signs 10/16/19 10/16/19 10/16/19 09:49 10:06 10:30 Temperature 98.1 F Pulse Rate 70 68 62 Respiratory 18 16 17 Rate Blood Pressure 127/86 105/81 O2 Sat by Pulse 99 95 Oximetry 10/16/19 11:00 Temperature Pulse Rate 71 Respiratory 16 Rate Blood Pressure 121/87 O2 Sat by Pulse 97 Oximetry Medical Decision Making - Lab Data Result diagrams: 10/16/19 10:18 10/16/19 10:18 Lab Results 10/16/19 10/16/19 10/16/19 Range/Units 10:00 10:11 10:18 WBC 11.2 H (3.8-10.6) k/uL RBC 5.68 (4.30-5.90) m/uL Hgb 15.9 (13.0-17.5) gm/dL Hct 47.2 (39.0-53.0) % MCV 83.0 (80.0-100.0) fL MCH 28.0 (25.0-35.0) pg MCHC 33.7 (31.0-37.0) g/dL RDW 12.7 (11.5-15.5) % Plt Count 288 (150-450) k/uL Neutrophils % 74 % Lymphocytes % 15 % Monocytes % 7 % Eosinophils % 1 % Basophils % 0 % Neutrophils # 8.3 H (1.3-7.7) k/uL Lymphocytes # 1.7 (1.0-4.8) k/uL Monocytes # 0.7 (0-1.0) k/uL Eosinophils # 0.2 (0-0.7) k/uL Basophils # 0.0 (0-0.2) k/uL PT 9.6 (9.0-12.0) sec INR 0.9 (<1.2) APTT 19.0 L (22.0-30.0) sec Sodium (137-145) mmol/L Potassium (3.5-5.1) mmol/L Chloride (98-107) mmol/L Carbon Dioxide (22-30) mmol/L Anion Gap mmol/L BUN (9-20) mg/dL Creatinine (0.66-1.25) mg/dL Est GFR (CKD-EPI)AfAm (>60 ml/min/1.73 sqM) Est GFR (CKD-EPI)NonAf (>60 ml/min/1.73 sqM) Glucose (74-99) mg/dL POC Glucose (mg/dL) 176 H (75-99) mg/dL POC Glu Sales Expert ID Caitlin Mayen Calcium (8.4-10.2) mg/dL Ionized Calcium Fatuma (4.5-5.3) mg/dL Phosphorus (2.5-4.5) mg/dL Magnesium (1.6-2.3) mg/dL Total Bilirubin (0.2-1.3) mg/dL AST (17-59) U/L ALT (4-49) U/L Alkaline Phosphatase (38-126) U/L Total Protein (6.3-8.2) g/dL Albumin (3.5-5.0) g/dL 10/16/19 Range/Units 10:18 WBC (3.8-10.6) k/uL RBC (4.30-5.90) m/uL Hgb (13.0-17.5) gm/dL Hct (39.0-53.0) % MCV (80.0-100.0) fL MCH (25.0-35.0) pg MCHC (31.0-37.0) g/dL RDW (11.5-15.5) % Plt Count (150-450) k/uL Neutrophils % % Lymphocytes % % Monocytes % % Eosinophils % % Basophils % % Neutrophils # (1.3-7.7) k/uL Lymphocytes # (1.0-4.8) k/uL Monocytes # (0-1.0) k/uL Eosinophils # (0-0.7) k/uL Basophils # (0-0.2) k/uL PT (9.0-12.0) sec INR (<1.2) APTT (22.0-30.0) sec Sodium 131 L (137-145) mmol/L Potassium 4.4 (3.5-5.1) mmol/L Chloride 91 L (98-107) mmol/L Carbon Dioxide 28 (22-30) mmol/L Anion Gap 12 mmol/L BUN 31 H (9-20) mg/dL Creatinine 0.89 (0.66-1.25) mg/dL Est GFR (CKD-EPI)AfAm >90 (>60 ml/min/1.73 sqM) Est GFR (CKD-EPI)NonAf >90 (>60 ml/min/1.73 sqM) Glucose 175 H (74-99) mg/dL POC Glucose (mg/dL) (75-99) mg/dL POC Glu Sales Expert ID Calcium 10.2 (8.4-10.2) mg/dL Ionized Calcium Fatuma 5.0 (4.5-5.3) mg/dL Phosphorus 4.7 H (2.5-4.5) mg/dL Magnesium 1.9 (1.6-2.3) mg/dL Total Bilirubin 0.6 (0.2-1.3) mg/dL AST 53 (17-59) U/L ALT 71 H (4-49) U/L Alkaline Phosphatase 104 (38-126) U/L Total Protein 7.1 (6.3-8.2) g/dL Albumin 4.5 (3.5-5.0) g/dL Disposition Clinical Impression: Nausea & vomiting, Paresthesia Disposition: ADMITTED IP TO THIS HOSP Condition: Fair Referrals: Bulmaro Little MD [Primary Care Provider] - 1-2 days Decision Time: 11:27
[2019-10-16 10:23] LABS: Basophils % (A) 0 %; Eosinophils # (A) 0.2 k/uL (0-0.7); Eosinophils % (A) 1 %; HCT 47.2 % (39.0-53.0); HGB 15.9 gm/dL (13.0-17.5); Lymphocytes # (A) 1.7 k/uL (1.0-4.8); Lymphocytes % (A) 15 %; MCHC 33.7 g/dL (31.0-37.0); Mean Platelet Volume 8.2; Monocytes # (A) 0.7 k/uL (0-1.0); Monocytes % (A) 7 %; Neutrophils # (A) 8.3 k/uL (1.3-7.7); Neutrophils % (A) 74 %; Platelet Count 288 k/uL (150-450); RBC 5.68 m/uL (4.30-5.90); RDW 12.7 % (11.5-15.5); WBC 11.2 k/uL (3.8-10.6)
[2019-10-16 10:39] LABS: ALT 71 U/L (4-49); AST 53 U/L (17-59); African American GFR (CKD) >90 (>60 ml/min/1.73 sqM); Albumin 4.5 g/dL (3.5-5.0); Alkaline Phosphatase 104 U/L (38-126); Anion Gap 12 mmol/L; Blood Urea Nitrogen 31 mg/dL (9-20); Calcium 10.2 mg/dL (8.4-10.2); Carbon Dioxide 28 mmol/L (22-30); Chloride 91 mmol/L (98-107); Glucose 175 mg/dL (74-99); Magnesium 1.9 mg/dL (1.6-2.3); Non-African American GFR(CKD) >90 (>60 ml/min/1.73 sqM); Phosphorus 4.7 mg/dL (2.5-4.5); Potassium 4.4 mmol/L (3.5-5.1); Sodium 131 mmol/L (137-145); Total Bilirubin 0.6 mg/dL (0.2-1.3); Total Protein 7.1 g/dL (6.3-8.2)
[2019-10-16 10:44] LABS: INR 0.9 (<1.2); Prothrombin Time 9.6 sec (9.0-12.0)
--- NOTE | 2019-10-16 10:55 | CT ---
EXAMINATION TYPE: CT brain wo con DATE OF EXAM: 10/16/2019 COMPARISON: NONE HISTORY: Lt sided numbness and weakness, Pt has squamous cell CA, currently receiving chemo CT DLP: 1084.4 mGycm Automated exposure control for dose reduction was used. FINDINGS: Central structures are midline. There is no evidence of hydrocephalus. No acute focal lesion, mass ef fect or midline shift is seen. I do not see evidence of intracranial blood. Visualized portions of the paranasal sinuses and mastoids are clear. The bony calvarium is intact. IMPRESSION: NO ACUTE INTRACRANIAL ABNORMALITY.
--- NOTE | 2019-10-16 10:57 | XR ---
EXAMINATION TYPE: XR chest 1V portable DATE OF EXAM: 10/16/2019 HISTORY: dyspnea. REFERENCE: Previous study dated 08/13/2013. FINDINGS: There is been a previous ACDF in the lower cervical spine. Heart size upper limits of normal. Lungs appear clear. There is blunting of the right CP angle. I cou ld not exclude a small right effusion.. IMPRESSION: 1. BORDERLINE CARDIOMEGALY. 2. I COULD NOT EXCLUDE A SMALL RIGHT-SIDED EFFUSION. 3. POSTSURGICAL CHANGE.
[2019-10-16] MEDS ORDERED: METOCLOPRAMIDE 5 MG/ML 2 ML VIAL IVP STA (11:05)
[2019-10-16] MEDS ORDERED: ASPIRIN 81 MG PO STA (11:16)
[2019-10-16] MEDS: SODIUM CHLORIDE 0.9% 1,000 ML IV SCH ×2 (12:00→20:53)
--- NOTE | 2019-10-16 14:31 | CT ---
EXAMINATION TYPE: CT angio head neck DATE OF EXAM: 10/16/2019 COMPARISON: Correlation CT brain same day HISTORY: 49-year-old male Nausea, Vomiting, Paresthesia TECHNIQUE: Contiguous axial scanning of the head and neck performed with IV Contrast, patient injecte d with 65 ml mL of Isovue 370. Coronal/sagittal MIP reconstructions performed. 3-D reconstructions ge nerated on a dedicated workstation. CT DLP: 662.4 mGycm Automated exposure control for dose reduction was used. FINDINGS: HEAD: Hypoplastic V4 segment left vertebral artery. Otherwise, the vertebral and basilar arteries are paten t. Persistent origins of the bilateral posterior cerebral arteries. There appears to be 3.5 mm ane urysm at the origin of the left posterior communicating artery, refer to thin slice axial series 408 images 163 and 164. The internal carotid arteries are patent without significant narrowing. Remainder of the anterior cir culation is patent. No additional aneurysmal changes seen. NECK: Staple line from prior wedge resection along the medial left upper lobe. Slightly more dominant right vertebral artery. There is variant direct takeoff of the left vertebral artery directly from the aortic arch. Otherwise, the vertebral arteries are patent throughout the cou rse. The right common and internal carotid arteries are patent. Left common carotid artery is patent. Minimal atherosclerotic calcification left carotid bulb. No significant narrowing within the left int ernal carotid artery. Prominent lobulated soft tissue density in the median and right para median posterior nasopharynx. IMPRESSION: HEAD: 1. LOBULATED MASS WITHIN THE POSTERIOR NASOPHARYNX. CORRELATE FOR UNDERLYING NEOPLASM AND ANY KNOWN O NCOLOGIC HISTORY. APPROPRIATE FOLLOW-UP RECOMMENDED. 2. PERSISTENT ORIGIN OF THE BILATERAL POSTERIOR CEREBRAL ARTERIES. 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 3. 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 4. NO LARGE VESSEL INTRACRANIAL ARTERIAL OCCLUSION OR SIGNIFICANT STENOSIS SEEN. NECK: 1. MINIMAL ATHEROSCLEROTIC CHANGE WITHIN THE LEFT CAROTID BULB. OTHERWISE, WIDELY PATENT VERTEBRAL AN D CAROTID ARTERIES OF THE NECK. 2. SOME CONGENITAL VARIATION WITH A SLIGHTLY MORE DOMINANT RIGHT VERTEBRAL ARTERY. THE LEFT VERTEBRAL ARTERY HAS VARIANT TAKE OFF DIRECTLY FROM THE AORTIC ARCH.
[2019-10-16] MEDS ORDERED: APREPITANT 80 MG PO SCH (15:00)
[2019-10-16] MEDS ORDERED: OLANZapine 5 MG TAB PO SCH (15:00)
--- NOTE | 2019-10-16 15:14 | P.HPIM ---
History of Present Illness H&P Date: 10/16/19 Chief Complaint: Left-sided weakness History of presenting complaint: This is a pleasant 49-year-old patient of Dr. Bulmaro Little. Chronic stable medical conditions include diabetes, GERD, hypertension, hyperlipidemia,(s) sleep apnea, fatty liver. 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 Patient received fibrillation treatments by Dr. Loomis here at [facility]. Dr. Smith is providing the chemotherapy and has the first round given this Friday. About 5:00 this morning patient noticed numbness tingling in the left side of the body and the face and subsequently noticed weakness. Multiple slightly portal the right. No change in speech. Very slight headache. No change in vision. No improvement since then. I saw the patient down in the ER and discussed with the ER physician he will discuss with the telemetry neurologist. Initial computed tomography scan of the brain was negative. Review of systems: GEN.: None EYES: None HEENT: None NECK: None RESPIRATORY: None CARDIOVASCULAR: None GASTROINTESTINAL: None GENITOURINARY: None MUSCULOSKELETAL: None LYMPHATICS: None HEMATOLOGICAL: None PSYCHIATRY: None NEUROLOGICAL: As above Past medical history to include: Diabetes, GERD, hyperlipidemia, hypertension, obstructive sleep apnea, fatty liver, spontaneous pneumothorax, squamous cell nasopharyngeal carcinoma diagnosed 1 month ago being treated with chemoradiation. Social history: . Does no smoke or drink alcohol. Stopped smoking in 1990 for a short time Family history: Reviewed, noncontributory to presentation Physical examination: VITAL SIGNS: 98.1, 70, 18, 127/86, N percent on room air GENERAL: BMI 32.5, laying in bed, comfortable. EYES: Pupils equal. Conjunctiva normal. HEENT: External appearance of nose and ears normal, oral cavity grossly normal. NECK: JVD not raised; masses not palpable. HEART: First and second heart sounds are normal; no edema. LUNGS: Respiratory rate normal; clear to auscultation. ABDOMEN: Soft, nontender, liver spleen not palpable, no masses palpable. PSYCH: Alert and oriented x3; mood and affect normal. NEUROLOGICAL: Facial asymmetry is most likely portal the right, decreased sensation left side of the face, power in the left arm and left leg is 4/5. Reflexes are equally vocal. Plantars equally vocal. LYMPHATICS: No lymph nodes palpable in the axilla and neck INVESTIGATIONS, reviewed in the clinical context: White count 11.2 hemoglobin 15.9 platelets 288 pressure 4.4 creatinine 0.89 EKG tracing personally reviewed by me-normal sinus rhythm Computed tomography scan of the brain-male acute CT angiogram of the head and neck-located mass within the posterior nasopharynx. 3.5 mm left PCO M aneurysm Assessment: -Patient presents acute onset of left facial weakness left-sided weakness. Suspect brainstem stroke. Did receive aspirin. No involvement of the vision or speech. -3.5 mm left PCO M aneurysm -Known nasopharyngeal carcinoma squamous cell type getting radiation treatment chemotherapy -Diabetes mellitus type 2, GERD Hyperlipidemia. Essential hypertension and - obstructive sleep apnea -Nonalcoholic fatty liver disease Plan: Patient was explained no neurological service available in the hospital. Because of COVID 19 pandemic patient is not getting transferred out. We will do an MRI of the brain. Already received aspirin. ER physician did talk to the telemetry neurologist. Also start Lipitor. Other medications to be resumed. Accu-Cheks will be followed. Lovenox for DVT prophylaxis. Neuro checks in place. PTOT consulted. Care was discussed with the patient. - Past Medical History Past Medical History: Cancer, Diabetes Mellitus, GERD/Reflux, Hyperlipidemia, Hypertension, Osteoarthritis (OA), Sleep Apnea/CPAP/BIPAP Additional Past Medical History / Comment(s): migranes, fatty liver, spontaneous pneumothorax History of Any Multi-Drug Resistant Organisms: None Reported Past Surgical History: Hernia Repair, Orthopedic Surgery Additional Past Surgical History / Comment(s): neck surgery x4 , lung surgery for spontaneous pneumothorax, UPPP SX, Past Anesthesia/Blood Transfusion Reactions: No Reported Reaction Past Psychological History: Depression Smoking Status: Former smoker Past Alcohol Use History: Rare Past Drug Use History: None Reported - Past Family History Mother Family Medical History: No Reported History Medications and Allergies Home Medications Medication Instructions Recorded Confirmed Type Lisinopril [Zestril] 20 mg PO DAILY 08/13/17 10/16/19 History Multivitamin [Men's Multi-Vitamin] 1 tab PO DAILY 08/13/17 10/16/19 History Nabumetone [Relafen] 750 mg PO BID 08/13/17 10/16/19 History Omeprazole 40 mg PO DAILY 08/13/17 10/16/19 History Simvastatin 40 mg PO DAILY 08/13/17 10/16/19 History Empagliflozin [Jardiance] 25 mg PO DAILY 11/04/18 10/16/19 History Aprepitant 80 mg PO DIRECTED 10/16/19 10/16/19 History Dexamethasone 4 mg PO DIRECTED 10/16/19 10/16/19 History Glucos Sul 2Kcl/MSM/Chond/C/Mn 2 cap PO DAILY 10/16/19 10/16/19 History [Glucosamine Chondroitin Cap] OLANZapine [ZyPREXA] 5 mg PO DIRECTED 10/16/19 10/16/19 History Ondansetron HCl [Zofran] 8 mg PO Q6H PRN 10/16/19 10/16/19 History Vitamin E 1,000 unit PO DAILY 10/16/19 10/16/19 History sitaGLIPtin PHOS/metFORMIN HCL 1 tab PO BID 10/16/19 10/16/19 History [Janumet 50-1,000 mg Tablet] Allergies Allergy/AdvReac Type Severity Reaction Status Date / Time No Known Allergies Allergy Verified 10/16/19 11:53 Physical Exam Vitals: Vital Signs Temp Pulse Resp BP Pulse Ox 10/16/19 13:37 64 18 129/88 10/16/19 13:30 129/88 10/16/19 13:00 78 13 119/74 97 10/16/19 12:30 70 14 122/87 97 10/16/19 12:00 75 18 113/74 98 10/16/19 11:30 68 10 L 120/80 97 10/16/19 11:00 71 16 121/87 97 10/16/19 10:30 62 17 105/81 95 10/16/19 10:06 68 16 10/16/19 09:49 98.1 F 70 18 127/86 99 Intake and Output 10/16/19 10/16/19 10/16/19 06:59 14:59 22:59 Other: Weight 108.862 kg Results CBC & Chem 7: 10/16/19 10:18 10/16/19 10:18 Labs: Abnormal Lab Results - Last 24 Hours (Table) 10/16/19 10/16/19 10/16/19 Range/Units 10:00 10:11 10:18 WBC 11.2 H (3.8-10.6) k/uL Neutrophils # 8.3 H (1.3-7.7) k/uL APTT 19.0 L (22.0-30.0) sec Sodium (137-145) mmol/L Chloride (98-107) mmol/L BUN (9-20) mg/dL Glucose (74-99) mg/dL POC Glucose (mg/dL) 176 H (75-99) mg/dL Phosphorus (2.5-4.5) mg/dL ALT (4-49) U/L 10/16/19 Range/Units 10:18 WBC (3.8-10.6) k/uL Neutrophils # (1.3-7.7) k/uL APTT (22.0-30.0) sec Sodium 131 L (137-145) mmol/L Chloride 91 L (98-107) mmol/L BUN 31 H (9-20) mg/dL Glucose 175 H (74-99) mg/dL POC Glucose (mg/dL) (75-99) mg/dL Phosphorus 4.7 H (2.5-4.5) mg/dL ALT 71 H (4-49) U/L
[2019-10-16 15:51] LABS: Cholesterol 190 mg/dL (<200); HDL Cholesterol 59 mg/dL (40-60); LDL Cholesterol,Calculated 51 mg/dL (0-99); Triglycerides 399 mg/dL (<150)
[2019-10-16 16:43] LABS: Magnesium 1.9 mg/dL (1.6-2.3)
[2019-10-16] MEDS: ENOXAPARIN 40 MG/0.4 ML SYRINGE SQ SCH (17:03)
[2019-10-16 17:15] LABS: Glucose,Whole Blood 154 mg/dL (75-99)
[2019-10-16] MEDS: INSULIN ASPART (NovoLOG) 100 UNIT/ML VIAL SQ SCH ×2 (17:35→20:52)
--- NOTE | 2019-10-16 17:46 | P.CONS ---
History of Present Illness - Reason for Consult Consult date: 10/16/19 Nasopharyngeal Cancer Requesting physician: Marcin James - Chief Complaint Unilateral weakness - History of Present Illness This is a very nice patient who presented with right ear fullness,which it started around April/2020,which persited. He was evaluated by Dr Mcwilliams,he had endoscopic evaluation,large nasopharyngeal mass was found,biopsy on 09/09/2019 was positive for squamous cell carcinoma. He was evaluated by Dr Mejias and Dr aJcob as well. On 09/27/2019,he had a PET scan which revealed suspicious utake in 3.3cm nasopharyngeal mass,otherwise negative. He is currently in the first week of undergoing chemotherapy with cisplatin and radiation. Cisplatin is every 3 weeks. No growth factor. He has had nausea, no vomiting. He stated during conversation this am arounf 2-3 am he felt extremely nauseated and dizzy, he states he is eating and drinking. His first cycle of chemo was completed 10/10, therefore friday night was the first day/night with out the dexamethasone which is included in this highly emetogenic protocol. He states he tried to sleep it off but it felt like it went from fingers to tongue and left side became weak. 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 Dr. Smith is primary oncologist. Review of Systems A 14 point review of systems assessed and completed and all neg except HPI Past Medical History Past Medical History: Cancer, Diabetes Mellitus, GERD/Reflux, Hyperlipidemia, Hypertension, Osteoarthritis (OA), Sleep Apnea/CPAP/BIPAP Additional Past Medical History / Comment(s): migranes, fatty liver, spontaneous pneumothorax History of Any Multi-Drug Resistant Organisms: None Reported Past Surgical History: Hernia Repair, Orthopedic Surgery Additional Past Surgical History / Comment(s): neck surgery x4 , lung surgery for spontaneous pneumothorax, UPPP SX, Past Anesthesia/Blood Transfusion Reactions: No Reported Reaction Past Psychological History: Depression Smoking Status: Former smoker Past Alcohol Use History: Rare Past Drug Use History: None Reported - Past Family History Mother Family Medical History: No Reported History Medications and Allergies Home Medications Medication Instructions Recorded Confirmed Type Lisinopril [Zestril] 20 mg PO DAILY 08/13/17 10/16/19 History Multivitamin [Men's Multi-Vitamin] 1 tab PO DAILY 08/13/17 10/16/19 History Nabumetone [Relafen] 750 mg PO BID 08/13/17 10/16/19 History Omeprazole 40 mg PO DAILY 08/13/17 10/16/19 History Simvastatin 40 mg PO DAILY 08/13/17 10/16/19 History Empagliflozin [Jardiance] 25 mg PO DAILY 11/04/18 10/16/19 History Aprepitant 80 mg PO DIRECTED 10/16/19 10/16/19 History Dexamethasone 4 mg PO DIRECTED 10/16/19 10/16/19 History Glucos Sul 2Kcl/MSM/Chond/C/Mn 2 cap PO DAILY 10/16/19 10/16/19 History [Glucosamine Chondroitin Cap] OLANZapine [ZyPREXA] 5 mg PO DIRECTED 10/16/19 10/16/19 History Ondansetron HCl [Zofran] 8 mg PO Q6H PRN 10/16/19 10/16/19 History Vitamin E 1,000 unit PO DAILY 10/16/19 10/16/19 History sitaGLIPtin PHOS/metFORMIN HCL 1 tab PO BID 10/16/19 10/16/19 History [Janumet 50-1,000 mg Tablet] Allergies Allergy/AdvReac Type Severity Reaction Status Date / Time No Known Allergies Allergy Verified 10/16/19 11:53 Physical Exam Vitals: Vital Signs Temp Pulse Resp BP Pulse Ox 10/16/19 15:00 73 16 128/89 96 10/16/19 13:37 64 18 129/88 10/16/19 13:30 129/88 10/16/19 13:00 78 13 119/74 97 10/16/19 12:30 70 14 122/87 97 10/16/19 12:00 75 18 113/74 98 10/16/19 11:30 68 10 L 120/80 97 10/16/19 11:00 71 16 121/87 97 10/16/19 10:30 62 17 105/81 95 10/16/19 10:06 68 16 10/16/19 09:49 98.1 F 70 18 127/86 99 Intake and Output 10/16/19 10/16/19 10/16/19 06:59 14:59 22:59 Other: Weight 108.862 kg Telemed visit no acute distress and alert and oriented Results CBC & Chem 7: 10/16/19 10:18 10/16/19 10:18 Labs: Abnormal Lab Results - Last 24 Hours (Table) 10/16/19 10/16/19 10/16/19 Range/Units 10:00 10:11 10:18 WBC 11.2 H (3.8-10.6) k/uL Neutrophils # 8.3 H (1.3-7.7) k/uL APTT 19.0 L (22.0-30.0) sec Sodium (137-145) mmol/L Chloride (98-107) mmol/L BUN (9-20) mg/dL Glucose (74-99) mg/dL POC Glucose (mg/dL) 176 H (75-99) mg/dL Phosphorus (2.5-4.5) mg/dL ALT (4-49) U/L Triglycerides (<150) mg/dL 10/16/19 10/16/19 Range/Units 10:18 10:18 WBC (3.8-10.6) k/uL Neutrophils # (1.3-7.7) k/uL APTT (22.0-30.0) sec Sodium 131 L (137-145) mmol/L Chloride 91 L (98-107) mmol/L BUN 31 H (9-20) mg/dL Glucose 175 H (74-99) mg/dL POC Glucose (mg/dL) (75-99) mg/dL Phosphorus 4.7 H (2.5-4.5) mg/dL ALT 71 H (4-49) U/L Triglycerides 399 H (<150) mg/dL CT Scan - head: report reviewed Assessment and Plan Plan: Assessment and Recs: Unilateral Acute Paresthesia: - Still with muscle fatigue on left side, but able to move all extremities - Angio of Head and CT brain non revealing for acute cause - Check Nutritional deficits B12, Folate - Other differentials to consider: neuropathic, myelitis, anxiety, insomnia, or medication induced - I have asked Neurology to evaluate - MRI of the brain and cervical spine is resonable if persists - Would also check TSH Nasopharyngeal Carcinoma: Squamous Cell - Status Post cycle one of Cisplatin with concurrent radiation - Treatment 10/10, without growth factors Peristent Nausea post treatment: - Minimal relief with zofran q4 hours - He was treated prophylactic with olazeprine and dexamethasone which completed - Trial Ativan for Nausea symotoms to use in between Zofran Mild Hyponatremia: - Likely secondary to chemotherapy and decreased PO intake and increased PO free water - Check urine lytes and osmolarity. Telemed visit via [facility] secondary to current pandemic. Patient permission given and all applicable tests, labs, and history reviewed in chart. If symptoms improve would like to be home for [place], await Neuro Recs. Alisha Dow NP
[2019-10-16 20:29] LABS: Glucose,Whole Blood 199 mg/dL (75-99)
[2019-10-16] MEDS: ATORVASTATIN 40 MG TAB PO SCH (20:52)
[2019-10-16] MEDS: LORazepam 0.5 MG TAB PO PRN (20:58)
[2019-10-16 23:32] LABS: Folate, Serum >24.0 ng/mL
[2019-10-17] MEDS: ONDANSETRON 4 MG/2 ML VIAL IVP PRN ×3 (05:22→22:00)
[2019-10-17 05:43] LABS: Glucose,Whole Blood 163 mg/dL (75-99)
[2019-10-17 06:16] LABS: Basophils % (A) 0 %; Eosinophils # (A) 0.1 k/uL (0-0.7); Eosinophils % (A) 1 %; HCT 46.2 % (39.0-53.0); HGB 15.5 gm/dL (13.0-17.5); Lymphocytes # (A) 0.9 k/uL (1.0-4.8); Lymphocytes % (A) 14 %; MCH 28.2 pg (25.0-35.0); MCHC 33.5 g/dL (31.0-37.0); MCV 84.1 fL (80.0-100.0); Mean Platelet Volume 8.4; Monocytes # (A) 0.5 k/uL (0-1.0); Monocytes % (A) 8 %; Neutrophils # (A) 4.4 k/uL (1.3-7.7); Neutrophils % (A) 73 %; Platelet Count 199 k/uL (150-450); RBC 5.49 m/uL (4.30-5.90); RDW 12.7 % (11.5-15.5)
[2019-10-17] MEDS: metFORMIN 500 MG TAB PO SCH ×2 (06:22→17:55)
[2019-10-17] MEDS: INSULIN ASPART (NovoLOG) 100 UNIT/ML VIAL SQ SCH ×3 (06:27→17:55)
[2019-10-17] MEDS: SODIUM CHLORIDE 0.9% 1,000 ML IV SCH (06:27)
[2019-10-17] MEDS: LORazepam 0.5 MG TAB PO PRN (06:48)
[2019-10-17] MEDS: ENOXAPARIN 40 MG/0.4 ML SYRINGE SQ SCH (08:09)
[2019-10-17] MEDS: LINAGLIPTIN 5 MG TABLET PO SCH (08:10)
[2019-10-17] MEDS: MELOXICAM 7.5 MG TAB PO SCH (08:10)
[2019-10-17] MEDS: PANTOPRAZOLE 40 MG TABLET PO SCH (08:10)
[2019-10-17] MEDS: LISINOPRIL 20 MG TAB PO SCH (08:10)
[2019-10-17] MEDS: NON FORMULARY DRUG (Empagliflozin [Jardiance] 25 MG) PO SCH (08:49)
[2019-10-17] MEDS ORDERED: ASPIRIN 325 MG TAB PO SCH (09:00)
[2019-10-17] MEDS ORDERED: ATORVASTATIN 20 MG TAB PO SCH (09:00)
[2019-10-17 09:51] LABS: ALT 77 U/L (4-49); AST 45 U/L (17-59); African American GFR (CKD) >90 (>60 ml/min/1.73 sqM); Albumin 4.1 g/dL (3.5-5.0); Alkaline Phosphatase 81 U/L (38-126); Anion Gap 9 mmol/L; Blood Urea Nitrogen 30 mg/dL (9-20); C Reactive Protein <5.0 mg/L (<10.0); Calcium 9.7 mg/dL (8.4-10.2); Carbon Dioxide 29 mmol/L (22-30); Chloride 93 mmol/L (98-107); Glucose 160 mg/dL (74-99); Non-African American GFR(CKD) 83 (>60 ml/min/1.73 sqM); Potassium 3.9 mmol/L (3.5-5.1); Sodium 131 mmol/L (137-145); Total Bilirubin 0.9 mg/dL (0.2-1.3); Total Protein 6.8 g/dL (6.3-8.2)
[2019-10-17 12:00] LABS: Glucose,Whole Blood 148 mg/dL (75-99)
--- NOTE | 2019-10-17 13:20 | MR ---
EXAMINATION TYPE: MR brain wo/w con DATE OF EXAM: 10/17/2019 12:58 PM COMPARISON: Previous CT scan of the brain dated 10/16/2019. HISTORY: Light headed and dizzy. History of CA. Nasopharyngeal Mass TECHNIQUE: Multiplanar, multiecho imaging of the brain was obtained with and without intravenous adm inistration of 7.5 mL intravenous Gadavist. FINDINGS: There is a 1.3 x 2.9 x 2.4 cm lobulated mass in the posterior nasopharynx. This enhances dr amatically. Midline structures are otherwise unremarkable. There is a normal craniocervical junction. Echoplanar diffusion imaging is normal. There are normal vascular flow voids. The orbits appear normal. There is abnormal signal within the right-sided mastoid air cells, likely representing mastoiditis. There are scattered high signal lesions throughout the deep white matter tracts of the cerebral hemis pheres on the FLAIR imaging. These are nonspecific and may represent demyelination from demyelinating disease, high blood pressure, small vessel disease, migraine headaches or Lyme' s disease. There is no mass effect or midline shift. Following the intravenous administration of gadolinium patient posterior nasopharyngeal mass enhances . There are no other abnormal areas of enhancement. IMPRESSION: 1. POSTERIOR NASOPHARYNGEAL MASS IS SUSPICIOUS FOR NEOPLASM. 2. NO EVIDENCE OF INTRACRANIAL METASTASES. 3. NONSPECIFIC PUNCTATE LESIONS ON THE FLAIR DATASET DISCUSSED ABOVE.
--- NOTE | 2019-10-17 14:43 | P.PN ---
Progress Note - Text Progress Note Date: 10/17/19 Chief Complaint: Left-sided weakness History of presenting complaint: This is a pleasant 49-year-old patient of Dr. Bulmaro Little. Chronic stable medical conditions include diabetes, GERD, hypertension, hyperlipidemia,(s) sleep apnea, fatty liver. 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 Patient's ear infection was not clearing up in as a follow-up patient discovered to have the nasopharyngeal her stoma. Patient received fibrillation treatments by Dr. Loomis here at [facility]. Dr. Smith is providing the chemotherapy and has the first round given this Friday. About 5:00 this morning patient noticed numbness tingling in the left side of the body and the face and subsequently noticed weakness. Multiple slightly portal the right. No change in speech. Very slight headache. No change in vision. No improvement since then. I saw the patient down in the ER and discussed with the ER physician he will discuss with the telemetry neurologist. Initial computed tomography scan of the brain was negative. Admitted with-possible stroke with left-sided weakness [id number] weakness is much improved on not entirely normal. Did have an MRI. No other new issues Review of systems: Was done for constitutional, cardiovascular, GI, pulmonary. Neurological relevant finding as above Active Medications Aspirin (Aspirin) 325 mg PO DAILY [facility] Last Admin: 10/17/19 08:09 Dose: 325 mg Documented by: Atorvastatin Calcium (Lipitor) 40 mg PO HS [facility] Last Admin: 10/16/19 20:52 Dose: 40 mg Documented by: Enoxaparin Sodium (Lovenox) 40 mg SQ DAILY [facility] Last Admin: 10/17/19 08:09 Dose: 40 mg Documented by: Sodium Chloride (Saline 0.9%) 1,000 mls @ 100 mls/hr IV .Q10H [facility] Last Admin: 10/17/19 06:27 Dose: 100 mls/hr Documented by: Insulin Aspart (Novolog) 0 unit SQ [facility]; Protocol Last Admin: 10/17/19 11:48 Dose: 1 unit Documented by: Linagliptin (Tradjenta) 5 mg PO DAILY [facility] Last Admin: 10/17/19 08:10 Dose: 5 mg Documented by: Lisinopril (Zestril) 20 mg PO DAILY [facility] Last Admin: 10/17/19 08:10 Dose: 20 mg Documented by: Lorazepam (Ativan) 0.5 mg PO Q8HR PRN PRN Reason: nausea Last Admin: 10/17/19 06:48 Dose: 0.5 mg Documented by: Meloxicam (Mobic) 15 mg PO DAILY [facility] Last Admin: 10/17/19 08:10 Dose: 15 mg Documented by: Metformin HCl (Glucophage) 1,000 mg PO BID-W/MEALS [facility] Last Admin: 10/17/19 06:22 Dose: 1,000 mg Documented by: Non-Formulary Medication (Empagliflozin [Jardiance]) 25 mg PO DAILY [facility] Last Admin: 10/17/19 08:49 Dose: Not Given Documented by: Ondansetron HCl (Zofran) 4 mg IVP Q6HR PRN PRN Reason: Nausea And Vomiting Last Admin: 10/17/19 11:48 Dose: 4 mg Documented by: Pantoprazole Sodium (Protonix) 40 mg PO DAILY [facility] Last Admin: 10/17/19 08:10 Dose: 40 mg Documented by: Physical examination: VITAL SIGNS: 97.4, 83, 18, 119/73, 92% room air GENERAL: BMI 32.5, laying in bed, comfortable. EYES: Pupils equal. Conjunctiva normal. HEENT: External appearance of nose and ears normal, oral cavity grossly normal. NECK: JVD not raised; masses not palpable. HEART: First and second heart sounds are normal; no edema. LUNGS: Respiratory rate normal; clear to auscultation. ABDOMEN: Soft, nontender, liver spleen not palpable, no masses palpable. PSYCH: Alert and oriented x3; mood and affect normal. NEUROLOGICAL: Facial asymmetry is most likely multiple to the right-with improve ment decreased sensation left side of the face, power in the left arm and left leg is 4/5.-Improved INVESTIGATIONS, reviewed in the clinical context: White count 6 hemoglobin 15.5 potassium 3.9 and creatinine 1.06 MRI brain-multiple white matter punctate changes differential large Previous testing White count 11.2 hemoglobin 15.9 platelets 288 pressure 4.4 creatinine 0.89 EKG tracing personally reviewed by me-normal sinus rhythm Computed tomography scan of the brain-male acute CT angiogram of the head and neck-located mass within the posterior nasopharynx. 3.5 mm left PCO M aneurysm Assessment: -Patient presents acute onset of left facial weakness left-sided weakness. With improvement not back to normal. Suspect lacunar infarct -3.5 mm left PCO M aneurysm -Known nasopharyngeal carcinoma squamous cell type getting radiation treatment chemotherapy -Diabetes mellitus type 2, GERD Hyperlipidemia. Essential hypertension and - obstructive sleep apnea -Nonalcoholic fatty liver disease Plan: Discussed with patient. Patient on aspirin, Lipitor. Watch for another 24 hours. -
[2019-10-17] MEDS: CLOPIDOGREL 75 MG TAB PO SCH (15:34)
[2019-10-17 17:29] LABS: Glucose,Whole Blood 213 mg/dL (75-99)
--- NOTE | 2019-10-17 18:26 | P.PN ---
Subjective Progress Note Date: 10/17/19 Principal diagnosis: Nasopharyngeal with new onset unilateral paresthesias He overall is feeling good, Ativan helped nausea better than zofran, he states no relief from zofran IV. Will provide prescription at discharge. We are awaiting Neuro to assess. He has appointment for radiation in am, I discussed with Dr. Loomis and will see patient in am, if he is still feeling good will plan to still take to radiation. Patient facetime telemed visit Objective - Vital Signs Vital signs: Vital Signs Temp 98.4 F 10/17/19 08:00 Pulse 88 10/17/19 08:00 Resp 18 10/17/19 08:00 BP 136/72 10/17/19 08:00 Pulse Ox 94 L 10/17/19 08:00 Intake & Output 10/16/19 10/17/19 10/17/19 18:59 06:59 18:59 Intake Total 230 540 240 Balance 230 540 240 Weight 106.2 kg 78.5 kg Intake: Oral 230 540 240 Other: # Voids 1 - Exam Telemed visit no acute distress and alert and oriented Results - Labs CBC & Chem 7: 10/17/19 05:38 10/17/19 05:38 Labs: Abnormal Lab Results - Last 24 Hours (Table) 10/16/19 10/16/19 10/16/19 Range/Units 10:00 10:11 10:18 WBC 11.2 H (3.8-10.6) k/uL Neutrophils # 8.3 H (1.3-7.7) k/uL Lymphocytes # (1.0-4.8) k/uL APTT 19.0 L (22.0-30.0) sec Sodium (137-145) mmol/L Chloride (98-107) mmol/L BUN (9-20) mg/dL Glucose (74-99) mg/dL POC Glucose (mg/dL) 176 H (75-99) mg/dL Phosphorus (2.5-4.5) mg/dL ALT (4-49) U/L Triglycerides (<150) mg/dL Vitamin B12 (200.0-944.0) pg/mL 10/16/19 10/16/19 10/16/19 Range/Units 10:18 10:18 10:18 WBC (3.8-10.6) k/uL Neutrophils # (1.3-7.7) k/uL Lymphocytes # (1.0-4.8) k/uL APTT (22.0-30.0) sec Sodium 131 L (137-145) mmol/L Chloride 91 L (98-107) mmol/L BUN 31 H (9-20) mg/dL Glucose 175 H (74-99) mg/dL POC Glucose (mg/dL) (75-99) mg/dL Phosphorus 4.7 H (2.5-4.5) mg/dL ALT 71 H (4-49) U/L Triglycerides 399 H (<150) mg/dL Vitamin B12 970.0 H (200.0-944.0) pg/mL 10/16/19 10/16/19 10/17/19 Range/Units 17:09 20:28 05:38 WBC (3.8-10.6) k/uL Neutrophils # (1.3-7.7) k/uL Lymphocytes # 0.9 L (1.0-4.8) k/uL APTT (22.0-30.0) sec Sodium (137-145) mmol/L Chloride (98-107) mmol/L BUN (9-20) mg/dL Glucose (74-99) mg/dL POC Glucose (mg/dL) 154 H 199 H (75-99) mg/dL Phosphorus (2.5-4.5) mg/dL ALT (4-49) U/L Triglycerides (<150) mg/dL Vitamin B12 (200.0-944.0) pg/mL 10/17/19 Range/Units 05:41 WBC (3.8-10.6) k/uL Neutrophils # (1.3-7.7) k/uL Lymphocytes # (1.0-4.8) k/uL APTT (22.0-30.0) sec Sodium (137-145) mmol/L Chloride (98-107) mmol/L BUN (9-20) mg/dL Glucose (74-99) mg/dL POC Glucose (mg/dL) 163 H (75-99) mg/dL Phosphorus (2.5-4.5) mg/dL ALT (4-49) U/L Triglycerides (<150) mg/dL Vitamin B12 (200.0-944.0) pg/mL Assessment and Plan Plan: Assessment and Recs: Unilateral Acute Paresthesia: - Still with muscle fatigue on left side, but able to move all extremities - Angio of Head and CT brain non revealing for acute cause - Check Nutritional deficits B12, Folate - Other differentials to consider: neuropathic, myelitis, anxiety, insomnia, or medication induced - I have asked Neurology to evaluate - MRI of the brain and cervical spine is resonable if persists - Would also check TSH Nasopharyngeal Carcinoma: Squamous Cell - Status Post cycle one of Cisplatin with concurrent radiation - Treatment 10/10, without growth factors Peristent Nausea post treatment: - Minimal relief with zofran q4 hours - He was treated prophylactic with olazeprine and dexamethasone which completed - Trial Ativan for Nausea symotoms to use in between Zofran - Patient states this helped will provide RX at discharge Mild Hyponatremia: - Likely secondary to chemotherapy and decreased PO intake and increased PO free water - Check urine lytes and osmolarity. PLan: - Await Neurology input - Spoke to Dr. Loomis and plan for radiation while in patient in am if patient still feeling good - Hopefully home after Neuro eval Telemed visit via [facility] secondary to current pandemic. Patient permission given and all applicable tests, labs, and history reviewed in chart. If symptoms improve would like to be home for [facility], await Neuro Recs. Alisha Dow NP
[2019-10-17 21:01] LABS: Glucose,Whole Blood 129 mg/dL (75-99)
[2019-10-18] MEDS: INSULIN ASPART (NovoLOG) 100 UNIT/ML VIAL SQ SCH ×5 (05:43→20:39)
[2019-10-18] MEDS: ATORVASTATIN 40 MG TAB PO SCH ×2 (05:43→20:39)
[2019-10-18] MEDS: LORazepam 0.5 MG TAB PO PRN ×2 (06:10→16:30)
[2019-10-18] MEDS: ONDANSETRON 4 MG/2 ML VIAL IVP PRN ×2 (06:10→12:02)
[2019-10-18 06:25] LABS: Glucose,Whole Blood 154 mg/dL (75-99)
[2019-10-18] MEDS: metFORMIN 500 MG TAB PO SCH ×2 (06:38→17:42)
[2019-10-18] MEDS: ENOXAPARIN 40 MG/0.4 ML SYRINGE SQ SCH (09:03)
[2019-10-18] MEDS: PANTOPRAZOLE 40 MG TABLET PO SCH (09:04)
[2019-10-18] MEDS: MELOXICAM 7.5 MG TAB PO SCH (09:04)
[2019-10-18] MEDS: CLOPIDOGREL 75 MG TAB PO SCH (09:05)
[2019-10-18] MEDS: ASPIRIN 81 MG PO SCH (09:05)
[2019-10-18] MEDS: LISINOPRIL 20 MG TAB PO SCH (09:05)
[2019-10-18] MEDS: NON FORMULARY DRUG (Empagliflozin [Jardiance] 25 MG) PO SCH (09:05)
[2019-10-18] MEDS: LINAGLIPTIN 5 MG TABLET PO SCH (09:05)
[2019-10-18 11:55] LABS: Glucose,Whole Blood 162 mg/dL (75-99)
--- NOTE | 2019-10-18 13:15 | P.CNNES ---
History of Present Illness Consult date: 10/18/19 Requesting physician: Marcin James Reason for Consult: Left-sided weakness, improved History of Present Illness: Patient is a 49-year-old male who has been diagnosed with squamous cell carcinoma after biopsy of the large nasopharyngeal mass on 09/09/2019. Patient is in the first week of chemotherapy with cisplatin and radiation. Cisplatin is every 3 weeks. This medication is highly emetogenic. He received cisplatin on 10/11/2019 and radiation for 5 days from October 10 to 10/15/2019. Patient states that the next day after completing chemotherapy at 5 AM he woke up with nausea, sweating, couldn't walk. He also noticed numbness of left side of the body including face, arm and leg. There was no weakness. He came to ER at 9:46 AM. Patient's NIH stroke scale was 1. He was considered not a candidate for TPA because of low NIH stroke scale and symptoms have been present for more than 4.5 hours. His blood pressure on arrival was 127/86, pulse is 70 and temperature 98.1. Patient underwent Computed tomography scan of head was negative. CTA of head showed lobulated mass within the posterior nasopharynx. Correlate for underlying neoplasm and any known oncologic history. Persistent origin of the bilateral posterior cerebral arteries. 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 No large vessel intracranial arterial occlusion or significant stenosis seen. CTA of the head and neck showed minimal atherosclerotic changes within the left carotid bulb. Otherwise widely patent vertebral and carotid arteries of neck. MRI of the brain with and without contrast was negative for any intracranial metastasis. No acute ischemic stroke. Nonspecific punctate lesions on the FLAIR. EKG shows normal sinus rhythm, LVH. Chest x-ray showed borderline cardiomegaly. Could not exclude a small right-sided effusion. Patient's blood test shows sodium 131 potassium 3.9, BUN/creatinine 30, creatinine 1.06. AST is 45 ALT 77. B12 is normal 70, folate 24, TSH normal cortisol normal, total cholesterol 190, LDL 51, HDL 59 and triglycerides 399. Franklin virus PCR negative on 10/16/2019. Patient has been started on Plavix 75 mg, Lipitor 40 mg and aspirin 81 mg. Patient states that when he woke up yesterday morning, Joshua, the symptoms had gone away completely. At present he feels fine. Patient has history of diabetes for 10 years, hypertension. He has smoked half pack per day for 3 years, only in high school. He drinks alcohol very occasionally. States his diabetes is well-controlled, and his last A1c 5.7. Patient does not take any antiplatelet medication at home. Review of Systems Completely unremarkable except as mentioned above. Denies chest pain shortness of breath wheezing or cough. Past Medical History Past Medical History: Cancer, Diabetes Mellitus, GERD/Reflux, Hyperlipidemia, Hypertension, Osteoarthritis (OA), Sleep Apnea/CPAP/BIPAP Additional Past Medical History / Comment(s): migranes, fatty liver, spontaneous pneumothorax History of Any Multi-Drug Resistant Organisms: None Reported Past Surgical History: Hernia Repair, Orthopedic Surgery Additional Past Surgical History / Comment(s): neck surgery x4 , lung surgery for spontaneous pneumothorax, UPPP SX, Past Anesthesia/Blood Transfusion Reactions: No Reported Reaction Past Psychological History: Depression Smoking Status: Former smoker Past Alcohol Use History: Rare Past Drug Use History: None Reported - Past Family History Mother Family Medical History: No Reported History Medications and Allergies Home Medications Medication Instructions Recorded Confirmed Type Lisinopril [Zestril] 20 mg PO DAILY 08/13/17 10/16/19 History Multivitamin [Men's Multi-Vitamin] 1 tab PO DAILY 08/13/17 10/16/19 History Nabumetone [Relafen] 750 mg PO BID 08/13/17 10/16/19 History Omeprazole 40 mg PO DAILY 08/13/17 10/16/19 History Simvastatin 40 mg PO DAILY 08/13/17 10/16/19 History Empagliflozin [Jardiance] 25 mg PO DAILY 11/04/18 10/16/19 History Aprepitant 80 mg PO DIRECTED 10/16/19 10/16/19 History Dexamethasone 4 mg PO DIRECTED 10/16/19 10/16/19 History Glucos Sul 2Kcl/MSM/Chond/C/Mn 2 cap PO DAILY 10/16/19 10/16/19 History [Glucosamine Chondroitin Cap] OLANZapine [ZyPREXA] 5 mg PO DIRECTED 10/16/19 10/16/19 History Ondansetron HCl [Zofran] 8 mg PO Q6H PRN 10/16/19 10/16/19 History Vitamin E 1,000 unit PO DAILY 10/16/19 10/16/19 History sitaGLIPtin PHOS/metFORMIN HCL 1 tab PO BID 10/16/19 10/16/19 History [Janumet 50-1,000 mg Tablet] Allergies Allergy/AdvReac Type Severity Reaction Status Date / Time No Known Allergies Allergy Verified 10/16/19 11:53 Physical Examination - Vital Signs Vital Signs: Vital Signs Temp Pulse Resp BP Pulse Ox 10/18/19 08:00 98.3 F 103 H 18 122/80 94 L 10/18/19 00:00 98.5 F 85 20 122/78 98 10/17/19 21:40 98.5 F 95 18 122/77 96 10/17/19 15:42 88 10/17/19 15:37 98.4 F 88 18 122/72 98 Intake and Output 10/17/19 10/18/19 10/18/19 22:59 06:59 14:59 Intake Total 444 240 Output Total 750 Balance -306 240 Intake: Oral 444 240 Output: Urine 750 Other: Voiding Method Toilet Toilet # Voids 1 1 # Bowel Movements 1 Weight 78 kg On examination patient is a middle aged male, in no distress. Patient is alert awake oriented to time place and person. Speech and language functions are normal. Attention and concentration fund of knowledge is adequate. On cranial examination pupils are round and reactive to light, visual ruiz are full on confrontation, extraocular muscles are intact with no nystagmus. Patient has mild left facial weakness, central type. Tongue protrudes the midline. Palatal elevation normal. On muscle strength testing there is no pronator drift and the strength is normal in arms and legs distally and proximally reflexes are 1+ and plantars downgoing. Sensory touch is equal. No ataxia for [id number] testing. Tone and bulk of muscles normal. Gait normal. No carotid bruit or murmur. Peripheral pulses present. Results - Laboratory Findings CBC and BMP: 10/17/19 05:38 10/17/19 05:38 Abnormal Lab Findings: Abnormal Labs 10/16/19 10/16/19 10/16/19 10:00 10:11 10:18 WBC 11.2 H Neutrophils # 8.3 H Lymphocytes # APTT 19.0 L Sodium Chloride BUN Glucose POC Glucose (mg/dL) 176 H Phosphorus ALT Triglycerides Vitamin B12 10/16/19 10/16/19 10/16/19 10:18 10:18 10:18 WBC Neutrophils # Lymphocytes # APTT Sodium 131 L Chloride 91 L BUN 31 H Glucose 175 H POC Glucose (mg/dL) Phosphorus 4.7 H ALT 71 H Triglycerides 399 H Vitamin B12 970.0 H 10/16/19 10/16/19 10/17/19 17:09 20:28 05:38 WBC Neutrophils # Lymphocytes # 0.9 L APTT Sodium Chloride BUN Glucose POC Glucose (mg/dL) 154 H 199 H Phosphorus ALT Triglycerides Vitamin B12 10/17/19 10/17/19 10/17/19 05:38 05:41 11:44 WBC Neutrophils # Lymphocytes # APTT Sodium 131 L Chloride 93 L BUN 30 H Glucose 160 H POC Glucose (mg/dL) 163 H 148 H Phosphorus ALT 77 H Triglycerides Vitamin B12 10/17/19 10/17/19 10/18/19 17:11 20:59 06:24 WBC Neutrophils # Lymphocytes # APTT Sodium Chloride BUN Glucose POC Glucose (mg/dL) 213 H 129 H 154 H Phosphorus ALT Triglycerides Vitamin B12 10/18/19 11:53 WBC Neutrophils # Lymphocytes # APTT Sodium Chloride BUN Glucose POC Glucose (mg/dL) 162 H Phosphorus ALT Triglycerides Vitamin B12 Assessment and Plan Assessment: * Possible TIA manifesting with numbness and tingling of left side of the body, that resolved in 24 hours. Current NIH stroke scale is 1, with mild left facial asymmetry. MRI of the brain revealed no acute CVA or metastatic disease. * Newly diagnosed nasopharyngeal squamous cell carcinoma, undergoing chemo and radiation. 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 * Diabetes well controlled * Hypertension Plan: * Patient will be placed on dual antiplatelet medication for 3 weeks, then may switch to monotherapy with aspirin 81 mg daily indefinitely. * We will check 2-D echo with bubble study to rule out PFO. * Hemoglobin A1c. * If above test comes back negative, then neurologically clear for discharge. * Patient was suggested to follow up with vascular neurology/neuro intervention Dr. Chiu for cerebral aneurysm noted on CTA, which is likely an incidental finding at this time.
[2019-10-18 15:08] VITALS: BMI 23.3
--- NOTE | 2019-10-18 15:47 | P.PN ---
Subjective Progress Note Date: 10/18/19 Principal diagnosis: TIA, nausea Patient reports no further episodes of left upper extremity numbness. He denies weakness or headaches. He has had some intermittent nausea, but notes that this seems improved after Ativan. Objective - Vital Signs Vital signs: Vital Signs Temp 98.3 F 10/18/19 14:51 Pulse 76 10/18/19 14:51 Resp 16 10/18/19 14:51 BP 141/89 10/18/19 14:51 Pulse Ox 91 L 10/18/19 14:51 Intake & Output 10/17/19 10/18/19 10/18/19 18:59 06:59 18:59 Intake Total 480 444 480 Output Total 750 Balance 480 -306 480 Weight 78 kg 78 kg Intake: Oral 480 444 480 Output: Urine 750 Other: Voiding Method Toilet # Voids 1 1 2 # Bowel Movements 1 - Constitutional General appearance: Present: no acute distress - EENT Eyes: Present: EOMI, PERRLA ENT: Present: NA/AT - Neck Neck: Absent: lymphadenopathy - Respiratory Respiratory: bilateral: CTA - Cardiovascular Rhythm: regular - Gastrointestinal General gastrointestinal: Absent: tenderness - Neurologic Neurologic: Present: CNII-XII intact - Psychiatric Psychiatric: Present: A&O x's 3, appropriate affect - Labs CBC & Chem 7: 10/17/19 05:38 10/17/19 05:38 Labs: Abnormal Lab Results - Last 24 Hours (Table) 10/17/19 10/17/19 10/18/19 Range/Units 17:11 20:59 06:24 POC Glucose (mg/dL) 213 H 129 H 154 H (75-99) mg/dL 10/18/19 Range/Units 11:53 POC Glucose (mg/dL) 162 H (75-99) mg/dL Assessment and Plan Plan: The patient is a 49-year-old male with a history of a recently diagnosed clinical stage II (cT2, cN0, M0) 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 He is s/p 1 cycle of cisplatin concurrent with radiation ( total completed). He presented with nausea and left sided paresthesia. 1. Left paresthesia: Resolved after around 10 hours; possible TIA; no evidence of CVA on MRI/CT. Appreciate neurology input. 2. Squamous carcinoma of Nasopharynx: OK to continue RT today and will continue with treatment after discharge to outpatient. Covid test negative (felt unlikely based on symptoms as well). Time with Patient: Less than 30
--- NOTE | 2019-10-18 16:22 | P.PN ---
Subjective Progress Note Date: 10/18/19 Principal diagnosis: N,V, paresthesia No acute c/o, on his way to XRT Objective - Vital Signs Vital signs: Vital Signs Temp 98.3 F 10/18/19 14:51 Pulse 76 10/18/19 14:51 Resp 16 10/18/19 14:51 BP 141/89 10/18/19 14:51 Pulse Ox 91 L 10/18/19 14:51 Intake & Output 10/17/19 10/18/19 10/18/19 18:59 06:59 18:59 Intake Total 480 444 480 Output Total 750 Balance 480 -306 480 Weight 78 kg 78 kg Intake: Oral 480 444 480 Output: Urine 750 Other: Voiding Method Toilet # Voids 1 1 2 # Bowel Movements 1 - Constitutional General appearance: Present: average body habitus, cooperative, no acute distress - EENT Eyes: Present: anicteric sclerae, EOMI ENT: Present: hearing grossly normal - Respiratory Details: no distress - Psychiatric Psychiatric: Present: A&O x's 3, appropriate affect, intact judgment & insight - Labs CBC & Chem 7: 10/17/19 05:38 10/17/19 05:38 Labs: Abnormal Lab Results - Last 24 Hours (Table) 10/17/19 10/17/19 10/18/19 Range/Units 17:11 20:59 06:24 POC Glucose (mg/dL) 213 H 129 H 154 H (75-99) mg/dL 10/18/19 Range/Units 11:53 POC Glucose (mg/dL) 162 H (75-99) mg/dL Assessment and Plan (1) CVA (cerebral vascular accident) Narrative/Plan: Seen by Neurology. Dual platelet therapy x 3 weeks then ASA. Pending ECHO to rule out PFO Current Visit: Yes Status: Acute Priority: High Code(s): I63.9 - CEREBRAL INFARCTION, UNSPECIFIED SNOMED Code(s): 503446942 (2) Paresthesia Current Visit: Yes Status: Acute Priority: High Code(s): R20.2 - PARESTHESIA OF SKIN SNOMED Code(s): 15227923 (3) Nausea & vomiting Current Visit: Yes Status: Resolved Code(s): R11.2 - NAUSEA WITH VOMITING, UNSPECIFIED SNOMED Code(s): 78499832 (4) Squamous cell carcinoma of head and neck Narrative/Plan: S/P 1st cycle of cis, he continues on XRT. F/U appt in chart. Current Visit: Yes Status: Acute Priority: High Code(s): C76.0 - MALIGNANT NEOPLASM OF HEAD, FACE AND NECK SNOMED Code(s): 648460511
[2019-10-18 16:46] LABS: Glucose,Whole Blood 170 mg/dL (75-99)
[2019-10-18 20:12] LABS: Glucose,Whole Blood 164 mg/dL (75-99)
--- NOTE | 2019-10-18 21:30 | P.PN ---
Progress Note - Text Progress Note Date: 10/18/19 Chief Complaint: Left-sided weakness History of presenting complaint: This is a pleasant 49-year-old patient of Dr. Bulmaro Little. Chronic stable medical conditions include diabetes, GERD, hypertension, hyperlipidemia,(s) sleep apnea, fatty liver. 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 Patient's ear infection was not clearing up in as a follow-up patient discovered to have the nasopharyngeal her stoma. Patient received fibrillation treatments by Dr. Loomis here at [facility]. Dr. Smith is providing the chemotherapy and has the first round given this Friday. About 5:00 this morning patient noticed numbness tingling in the left side of the body and the face and subsequently noticed weakness. Multiple slightly portal the right. No change in speech. Very slight headache. No change in vision. No improvement since then. I saw the patient down in the ER and discussed with the ER physician he will discuss with the telemetry neurologist. Initial computed tomography scan of the brain was negative. Admitted with-possible stroke with left-sided weakness-lacunar infarct suspected [id number] weakness much improved. Very slight facial asymmetry. Due for radiation treatment this afternoon. Review of systems: Was done for constitutional, cardiovascular, GI, pulmonary. Neurological relevant finding as above Active Medications Aspirin (Aspirin) 81 mg PO DAILY [facility] Last Admin: 10/18/19 09:05 Dose: 81 mg Documented by: Atorvastatin Calcium (Lipitor) 40 mg PO HS [facility] Last Admin: 10/18/19 20:39 Dose: 40 mg Documented by: Clopidogrel Bisulfate (Plavix) 75 mg PO DAILY [facility] Last Admin: 10/18/19 09:05 Dose: 75 mg Documented by: Enoxaparin Sodium (Lovenox) 40 mg SQ DAILY [facility] Last Admin: 10/18/19 09:03 Dose: 40 mg Documented by: Insulin Aspart (Novolog) 0 unit SQ [facility]; Protocol Last Admin: 10/18/19 20:39 Dose: 2 unit Documented by: Linagliptin (Tradjenta) 5 mg PO DAILY [facility] Last Admin: 10/18/19 09:05 Dose: 5 mg Documented by: Lisinopril (Zestril) 20 mg PO DAILY [facility] Last Admin: 10/18/19 09:05 Dose: Not Given Documented by: Lorazepam (Ativan) 0.5 mg PO Q8HR PRN PRN Reason: nausea Last Admin: 10/18/19 16:30 Dose: 0.5 mg Documented by: Meloxicam (Mobic) 15 mg PO DAILY [facility] Last Admin: 10/18/19 09:04 Dose: 15 mg Documented by: Metformin HCl (Glucophage) 1,000 mg PO BID-W/MEALS [facility] Last Admin: 10/18/19 17:42 Dose: 1,000 mg Documented by: Non-Formulary Medication (Empagliflozin [Jardiance]) 25 mg PO DAILY [facility] Last Admin: 10/18/19 09:05 Dose: Not Given Documented by: Ondansetron HCl (Zofran) 4 mg IVP Q6HR PRN PRN Reason: Nausea And Vomiting Last Admin: 10/18/19 12:02 Dose: 4 mg Documented by: Pantoprazole Sodium (Protonix) 40 mg PO DAILY [facility] Last Admin: 10/18/19 09:04 Dose: 40 mg Documented by: Physical examination: VITAL SIGNS: 98.3, 13, 18, 122/80, 94% on room air GENERAL: BMI 32.5, sitting up, comfortable. EYES: Pupils equal. Conjunctiva normal. HEENT: External appearance of nose and ears normal, oral cavity grossly normal. NECK: JVD not raised; masses not palpable. HEART: First and second heart sounds are normal; no edema. LUNGS: Respiratory rate normal; clear to auscultation. ABDOMEN: Soft, nontender, liver spleen not palpable, no masses palpable. PSYCH: Alert and oriented x3; mood and affect normal. NEUROLOGICAL: Facial asymmetry minimal with mouth to the right-with improvement power on the the left side nearly back to normal INVESTIGATIONS, reviewed in the clinical context: White count 6 hemoglobin 15.5 potassium 3.9 and creatinine 1.06 MRI brain-multiple white matter punctate changes differential large Previous testing White count 11.2 hemoglobin 15.9 platelets 288 pressure 4.4 creatinine 0.89 EKG tracing personally reviewed by me-normal sinus rhythm Computed tomography scan of the brain-male acute CT angiogram of the head and neck-located mass within the posterior nasopharynx. 3.5 mm left PCO M aneurysm Assessment: -Patient presents acute onset of left facial weakness left-sided weakness. With improvement nearly back to normal. Suspect lacunar infarct -3.5 mm left PCO M aneurysm-outpatient workup -Known nasopharyngeal carcinoma squamous cell type getting radiation treatment chemotherapy -Diabetes mellitus type 2, GERD Hyperlipidemia. Essential hypertension and - obstructive sleep apnea -Nonalcoholic fatty liver disease Plan: Seen by Dr. Najera from neurology. 2-D echo with bubble study done. Results pending. Other medications to continue.
[2019-10-18 21:53] LABS: Hemoglobin A1C 6.7 % (4.0-6.0)
[2019-10-19] MEDS: ONDANSETRON 4 MG/2 ML VIAL IVP PRN ×2 (04:18→09:25)
[2019-10-19 06:25] VITALS: BP 129/93; PULSE 98; RESP 20; TEMP 98
[2019-10-19 07:18] LABS: Glucose,Whole Blood 163 mg/dL (75-99)
[2019-10-19] MEDS: PANTOPRAZOLE 40 MG TABLET PO SCH (08:36)
[2019-10-19] MEDS: INSULIN ASPART (NovoLOG) 100 UNIT/ML VIAL SQ SCH ×2 (08:36→12:58)
[2019-10-19] MEDS: MELOXICAM 7.5 MG TAB PO SCH (08:36)
[2019-10-19] MEDS: LINAGLIPTIN 5 MG TABLET PO SCH (08:37)
[2019-10-19] MEDS: LISINOPRIL 20 MG TAB PO SCH (08:37)
[2019-10-19] MEDS: ASPIRIN 81 MG PO SCH (08:37)
[2019-10-19] MEDS: metFORMIN 500 MG TAB PO SCH (08:37)
[2019-10-19] MEDS: CLOPIDOGREL 75 MG TAB PO SCH (08:37)
[2019-10-19] MEDS: ENOXAPARIN 40 MG/0.4 ML SYRINGE SQ SCH (08:37)
--- NOTE | 2019-10-19 08:50 | ECHOF ---
Referral Reason:TIA MEASUREMENTS -------- HEIGHT: 182.9 cm WEIGHT: 77.6 kg BP: RVIDd: 3.8 cm (< 3.3) IVSd: 1.7 cm (0.6 - 1.1) LVIDd: 3.1 cm (3.9 - 5.3) LVPWd: 1.7 cm (0.6 - 1.1) IVSs: 2.2 cm LVIDs: 2.0 cm LVPWs: 1.9 cm LAESV Index (A-L): 26.81 ml/m Ao Diam: 4.0 cm (2.0 - 3.7) AV Cusp: 2.5 cm (1.5 - 2.6) MV EXCURSION: 20.282 mm (> 18.000) MV EF SLOPE: 104 mm/s (70 - 150) EPSS: 1.4 cm MV E Konrad: 0.61 m/s MV DecT: 170 ms MV A Konrad: 0.72 m/s MV E/A Ratio: 0.85 RAP: 5.00 mmHg RVSP: 19.39 mmHg FINDINGS -------- Sinus rhythm. This was a technically adequate study. The left ventricular size is normal. There is moderate concentric left ventricular hypertrophy. O verall left ventricular systolic function is low-normal with, an EF between 50 - 55 %. The right ventricle is mild to moderately enlarged. Normal LA size by volume 22+/-6 ml/m2. The right atrium is mildly enlarged. Contrast study was performed with 2 iv injections of 8 ccs of agitated normal saline, at rest, and wi th cough. Quality of bubble study sub optimal, can not comment on PFO. The aortic valve is trileaflet, and appears structurally normal. No aortic stenosis or regurgitation. The mitral valve is normal. No mitral regurgitation. Mild tricuspid regurgitation present. There is no evidence of pulmonary hypertension. The right v entricular systolic pressure, as measured by Doppler, is 19.39mmHg. There is no pulmonic regurgitation present. The aortic root is mildy dilated. IVC Not well visulized. There is no pericardial effusion. CONCLUSIONS -------- 1. There is moderate concentric left ventricular hypertrophy. 2. Overall left ventricular systolic function is low-normal with, an EF between 50 - 55 %. 3. The right ventricle is mild to moderately enlarged. 4. Normal LA size by volume 22+/-6 ml/m2. 5. The right atrium is mildly enlarged. 6. Contrast study was performed with 2 iv injections of 8 ccs of agitated normal saline, at rest, and with cough. 7. Quality of bubble study sub optimal, can not comment on PFO. 8. The aortic valve is trileaflet, and appears structurally normal. No aortic stenosis or regurgitati on. 9. No mitral regurgitation. 10. Mild tricuspid regurgitation present. 11. There is no evidence of pulmonary hypertension. 12. The aortic root is mildy dilated. FLAT BED KNITTER: Prema Hidalgo RDCS
[2019-10-19] MEDS: NON FORMULARY DRUG (Empagliflozin [Jardiance] 25 MG) PO SCH (08:53)
[2019-10-19] MEDS: LORazepam 0.5 MG TAB PO PRN (09:25)
[2019-10-19 11:49] LABS: Glucose,Whole Blood 135 mg/dL (75-99)
--- NOTE | 2019-10-19 15:11 | P.PN ---
Subjective Progress Note Date: 10/19/19 Principal diagnosis: N,V, paresthesia. On treatment for squamous cell head/neck Pt doing well today, he has no c/o, denies unilateral weakness, numbness, dizziness. Objective - Vital Signs Vital signs: Vital Signs Temp 98.0 F 10/19/19 06:00 Pulse 98 10/19/19 06:00 Resp 20 10/19/19 06:00 BP 129/93 10/19/19 06:00 Pulse Ox 93 L 10/19/19 06:00 Intake & Output 10/18/19 10/19/19 10/19/19 18:59 06:59 18:59 Intake Total 480 900 Balance 480 900 Weight 78 kg Intake: Oral 480 900 Other: Voiding Method Toilet # Voids 2 2 3 - Constitutional General appearance: Present: average body habitus, cooperative, no acute distress - EENT Eyes: Present: anicteric sclerae, EOMI ENT: Present: hearing grossly normal - Respiratory Respiratory: bilateral: CTA - Cardiovascular Heart sounds: normal: S1, S2 Abnormal Heart Sounds: Absent: systolic murmur, diastolic murmur, rub, S3 Gallop, S4 Gallop, click, other - Peripheral edema leg Peripheral Edema: bilateral: None - Gastrointestinal General gastrointestinal: Present: normal bowel sounds, soft - Integumentary Integumentary: Present: normal turgor - Neurologic Neurologic Comment(s): CN grossly intact - Psychiatric Psychiatric: Present: A&O x's 3, appropriate affect, intact judgment & insight - Labs CBC & Chem 7: 10/17/19 05:38 10/17/19 05:38 Labs: Abnormal Lab Results - Last 24 Hours (Table) 10/18/19 10/18/19 10/18/19 Range/Units 05:38 16:45 20:00 POC Glucose (mg/dL) 170 H 164 H (75-99) mg/dL Hemoglobin A1c 6.7 H (4.0-6.0) % 10/19/19 10/19/19 Range/Units 07:17 11:47 POC Glucose (mg/dL) 163 H 135 H (75-99) mg/dL Hemoglobin A1c (4.0-6.0) % Assessment and Plan (1) CVA (cerebral vascular accident) Narrative/Plan: Seen by Neurology. Neuro plan is for dual platelet therapy x 3 weeks then ASA. ECHO was indeterminate for PFO. Have requested BLE doppler to rule out DVT that cold cause CVA if pt has PFO. Current Visit: Yes Status: Acute Priority: High Code(s): I63.9 - CEREBRAL INFARCTION, UNSPECIFIED SNOMED Code(s): 622906395 (2) Paresthesia Narrative/Plan: Stable, less intense Current Visit: Yes Status: Acute Priority: High Code(s): R20.2 - PARESTHESIA OF SKIN SNOMED Code(s): 17012592 (3) Nausea & vomiting Current Visit: Yes Status: Resolved Code(s): R11.2 - NAUSEA WITH VOMITING, U NSPECIFIED SNOMED Code(s): 08301680 (4) Squamous cell carcinoma of head and neck Narrative/Plan: S/P 1st cycle of cis, he continues on XRT. F/U appt in chart, keep current plan Current Visit: Yes Status: Acute Priority: High Code(s): C76.0 - MALIGNANT NEOPLASM OF HEAD, FACE AND NECK SNOMED Code(s): 060475221 Plan: Doctor attests: I performed a history and physical examination of this patient, developed impression and plan of care, discussed with dictator. I agree with dictators note, documented as a scribe.
--- NOTE | 2019-10-19 15:50 | P.PN ---
Subjective Progress Note Date: 10/19/19 Patient states he is feeling better. He offers no new complaints. Denies headache. Objective - Vital Signs Vital signs: Vital Signs Temp 98.0 F 10/19/19 06:00 Pulse 98 10/19/19 06:00 Resp 20 10/19/19 06:00 BP 129/93 10/19/19 06:00 Pulse Ox 93 L 10/19/19 06:00 Intake & Output 10/18/19 10/19/19 10/19/19 18:59 06:59 18:59 Intake Total 480 900 Balance 480 900 Weight 78 kg Intake: Oral 480 900 Other: Voiding Method Toilet # Voids 2 2 3 - Exam Patient's mental status is normal. Speech is very mildly dysarthric, no aphasia. On cranial nerve exam showed pupils are round and reactive to light, visual ruiz are full. Patient has mild left facial weakness, central type. Tongue protrudes the midline. Muscle strength shows no pronator drift and the strength is normal in arms and legs. No ataxia. Tone and bulk of muscles normal. Sensations equal with no neglect. - Labs CBC & Chem 7: 10/17/19 05:38 10/17/19 05:38 Labs: Abnormal Lab Results - Last 24 Hours (Table) 10/18/19 10/18/19 10/18/19 Range/Units 05:38 16:45 20:00 POC Glucose (mg/dL) 170 H 164 H (75-99) mg/dL Hemoglobin A1c 6.7 H (4.0-6.0) % 10/19/19 10/19/19 Range/Units 07:17 11:47 POC Glucose (mg/dL) 163 H 135 H (75-99) mg/dL Hemoglobin A1c (4.0-6.0) % Assessment and Plan Assessment: * Possible TIA manifesting with numbness and tingling of left side of the body, that resolved in 24 hours. Current NIH stroke scale is 1, with mild left facial asymmetry. MRI of the brain revealed no acute CVA or metastatic disease. * Newly diagnosed nasopharyngeal squamous cell carcinoma, undergoing chemo and radiation. 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 * Diabetes well controlled * Hypertension Plan: * Patient will be placed on dual antiplatelet medication for 3 weeks, then may switch to monotherapy with aspirin 81 mg daily indefinitely. * 2-D echo showed moderate concentric LVH, EF 50-55%. Right ventricle is mild to moderately enlarged. Normal left atrial size. Contrast study was performed with 2 IV injections of 8 mL of agitated normal saline, at rest and with cough. Quality of bubble study suboptimal, cannot comment on PFO. * Hemoglobin A1c 6.7. Diabetes well controlled * Neurologically clear for discharge. * Patient was suggested to follow up with vascular neurology/neuro intervention Dr. Valdivia for cerebral aneurysm noted on CTA, which is likely an incidental finding at this time.
--- NOTE | 2019-10-19 16:22 | US ---
EXAMINATION TYPE: US venous doppler duplex LE DATE OF EXAM: 10/19/2019 3:08 PM COMPARISON: NONE CLINICAL HISTORY: CVA. Patient states no symptoms, exam done portable. SIDE PERFORMED: Bilateral TECHNIQUE: The lower extremity deep venous system is examined utilizing real time linear array sonog kimberly with graded compression, doppler sonography and color-flow sonography. VESSELS IMAGED: External Iliac Vein (EIV) Common Femoral Vein Deep Femoral Vein Greater Saphenous Vein * Femoral Vein Popliteal Vein Small Saphenous Vein * Proximal Calf Veins (* superficial vessels) Right Leg: Appears negative for DVT Left Leg: Appears negative for DVT IMPRESSION: No evidence for DVT.
--- NOTE | 2019-10-19 21:13 | P.DS ---
Providers Date of admission: 10/18/19 09:56 Expected date of discharge: 10/19/19 Attending physician: Marcin James Consults: 10/16/19 15:14 Consult Physician Routine Consulting Provider: No Smith Consult Reason/Comments: NPC-squamous cell carcinoma getting chemotherapy Do you want consulting provider notified?: Yes 10/16/19 16:25 Consult Physician Routine Consulting Provider: Neurology Coverage Consult Reason/Comments: Unilateral weakness, paresthesia, nasopharyngeal cancer, Do you want consulting provider notified?: Yes 10/17/19 16:56 Consult Physician Routine Consulting Provider: Clifford Loomis Consult Reason/Comments: Concurrent radiation, due tomorrow Do you want consulting provider notified?: Already Contacted 10/18/19 10:54 Consult Physician Routine Consulting Provider: Yordy Purvis Consult Reason/Comments: left weakness-improved Do you want consulting provider notified?: Yes Primary care physician: [facility] Course: Chief Complaint: Left-sided weakness History of presenting complaint: This is a pleasant 49-year-old patient of Dr. Bulmaro Little. Chronic stable medical conditions include diabetes, GERD, hypertension, hyperlipidemia,(s) sleep apnea, fatty liver. 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 Patient's ear infection was not clearing up in as a follow-up patient discovered to have the nasopharyngeal her stoma. Patient received fibrillation treatments by Dr. Loomis here at [facility]. Dr. Smith is providing the chemotherapy and has the first round given this Friday. About 5:00 this morning patient noticed numbness tingling in the left side of the body and the face and subsequently noticed weakness. Multiple slightly portal the right. No change in speech. Very slight headache. No change in vision. No improvement since then. I saw the patient down in the ER and discussed with the ER physician he will discuss with the telemetry neurologist. Initial computed tomography scan of the brain was negative. Admitted with-possible stroke with left-sided weakness-lacunar infarct suspected. MRI of the brain showed nonspecific punctate lesions in the white matter. 2-D echo with a bubble study was nonspecific. Did get a radiation treatment by Dr. Loomis. [id number] weakness nearly resolved. Very slight facial asymmetry. Results were discussed with the patient. Follow with neurology and neurosurgery as an outpatient-discussed with patient. Consultation: Dr. Lloyd from oncology Dr. Najera from neurology Dr. Loomis from radiation oncology Review of systems: Was done for constitutional, cardiovascular, GI, pulmonary. Neurological relevant finding as above Active Medications Aspirin (Aspirin) 81 mg PO DAILY [facility] Last Admin: 10/18/19 09:05 Dose: 81 mg Documented by: Atorvastatin Calcium (Lipitor) 40 mg PO HS [facility] Last Admin: 10/18/19 20:39 Dose: 40 mg Documented by: Clopidogrel Bisulfate (Plavix) 75 mg PO DAILY [facility] Last Admin: 10/18/19 09:05 Dose: 75 mg Documented by: Enoxaparin Sodium (Lovenox) 40 mg SQ DAILY [facility] Last Admin: 10/18/19 09:03 Dose: 40 mg Documented by: Insulin Aspart (Novolog) [address] [facility]; Protocol Last Admin: 10/18/19 20:39 Dose: 2 unit Documented by: Linagliptin (Tradjenta) 5 mg PO DAILY [facility] Last Admin: 10/18/19 09:05 Dose: 5 mg Documented by: Lisinopril (Zestril) 20 mg PO DAILY [facility] Last Admin: 10/18/19 09:05 Dose: Not Given Documented by: Lorazepam (Ativan) 0.5 mg PO Q8HR PRN PRN Reason: nausea Last Admin: 10/18/19 16:30 Dose: 0.5 mg Documented by: Meloxicam (Mobic) 15 mg PO DAILY [facility] Last Admin: 10/18/19 09:04 Dose: 15 mg Documented by: Metformin HCl (Glucophage) 1,000 mg PO BID-W/MEALS [facility] Last Admin: 10/18/19 17:42 Dose: 1,000 mg Documented by: Non-Formulary Medication (Empagliflozin [Jardiance]) 25 mg PO DAILY [facility] Last Admin: 10/18/19 09:05 Dose: Not Given Documented by: Ondansetron HCl (Zofran) 4 mg IVP Q6HR PRN PRN Reason: Nausea And Vomiting Last Admin: 10/18/19 12:02 Dose: 4 mg Documented by: Pantoprazole Sodium (Protonix) 40 mg PO DAILY [facility] Last Admin: 10/18/19 09:04 Dose: 40 mg Documented by: Physical examination: VITAL SIGNS: 98.3, 13, 18, 122/80, 94% on room air GENERAL: BMI 32.5, sitting up, comfortable. EYES: Pupils equal. Conjunctiva normal. HEENT: External appearance of nose and ears normal, oral cavity grossly normal. NECK: JVD not raised; masses not palpable. HEART: First and second heart sounds are normal; no edema. LUNGS: Respiratory rate normal; clear to auscultation. ABDOMEN: Soft, nontender, liver spleen not palpable, no masses palpable. PSYCH: Alert and oriented x3; mood and affect normal. NEUROLOGICAL: Facial asymmetry minimal with mouth to the right-with improvement power on the the left side nearly back to normal INVESTIGATIONS, reviewed in the clinical context: White count 6 hemoglobin 15.5 potassium 3.9 and creatinine 1.06 MRI brain-multiple white matter punctate changes large Previous testing White count 11.2 hemoglobin 15.9 platelets 288 pressure 4.4 creatinine 0.89 EKG tracing personally reviewed by me-normal sinus rhythm Computed tomography scan of the brain-male acute CT angiogram of the head and neck-located mass within the posterior nasopharynx. 3.5 mm left PCOM aneurysm Assessment: -Patient presents acute onset of left facial weakness left-sided weakness. With improvement nearly back to normal. Suspect lacunar infarct -3.5 mm left PCO M aneurysm-outpatient workup Dr. Valdivia -Known nasopharyngeal carcinoma squamous cell type getting radiation treatment chemotherapy -Diabetes mellitus type 2, -GERD -Hyperlipidemia. -Essential hypertension - obstructive sleep apnea -Nonalcoholic fatty liver disease Disposition: Home Patient Condition at Discharge: Stable Plan - Discharge Summary Discharge Rx Participant: Yes New Discharge Prescriptions: New Aspirin 81 mg PO DAILY #30 chew Atorvastatin [Lipitor] 40 mg PO HS #30 tab Clopidogrel [Plavix] 75 mg PO DAILY #30 tab Continue Lisinopril [Zestril] 20 mg PO DAILY Omeprazole 40 mg PO DAILY Nabumetone [Relafen] 750 mg PO BID Multivitamin [Men's Multi-Vitamin] 1 tab PO DAILY Empagliflozin [Jardiance] 25 mg PO DAILY Ondansetron HCl [Zofran] 8 mg PO Q6H PRN PRN Reason: Nausea And Vomiting OLANZapine [ZyPREXA] 5 mg PO DIRECTED Aprepitant 80 mg PO DIRECTED sitaGLIPtin PHOS/metFORMIN HCL [Janumet 50-1,000 mg Tablet] 1 tab PO BID Vitamin E 1,000 unit PO DAILY Glucos Sul 2Kcl/MSM/Chond/C/Mn [Glucosamine Chondroitin Cap] 2 cap PO DAILY Discontinued Simvastatin 40 mg PO DAILY No Action Dexamethasone 4 mg PO DIRECTED Discharge Medication List Lisinopril [Zestril] 20 mg PO DAILY 08/13/17 [History] Multivitamin [Men's Multi-Vitamin] 1 tab PO DAILY 08/13/17 [History] Nabumetone [Relafen] 750 mg PO BID 08/13/17 [History] Omeprazole 40 mg PO DAILY 08/13/17 [History] Empagliflozin [Jardiance] 25 mg PO DAILY 11/04/18 [History] Aprepitant 80 mg PO DIRECTED 10/16/19 [History] Dexamethasone 4 mg PO DIRECTED 10/16/19 [History] Glucos Sul 2Kcl/MSM/Chond/C/Mn [Glucosamine Chondroitin Cap] 2 cap PO DAILY 10/16/19 [History] OLANZapine [ZyPREXA] 5 mg PO DIRECTED 10/16/19 [History] Ondansetron HCl [Zofran] 8 mg PO Q6H PRN 10/16/19 [History] Vitamin E 1,000 unit PO DAILY 10/16/19 [History] sitaGLIPtin PHOS/metFORMIN HCL [Janumet 50-1,000 mg Tablet] 1 tab PO BID 10/16/19 [History] Aspirin 81 mg PO DAILY #30 chew 10/19/19 [Rx] Atorvastatin [Lipitor] 40 mg PO HS #30 tab 10/19/19 [Rx] Clopidogrel [Plavix] 75 mg PO DAILY #30 tab 10/19/19 [Rx] Follow up Appointment(s)/Referral(s): Vanessa Fisher NPC [Nurse Practitioner] - 10/27/19 11:15 am (This is a telemedicine visit) Bulmaro Little MD [Primary Care Provider] - 1 Week (please call office to set up appt time and date.) Yoel Delgado MD [STAFF PHYSICIAN] - 1 Week (please call office to set up appt. time and date) Patient Instructions/Handouts: Chemo Induced Nausea and Vomiting (DC) Discharge Disposition: HOME SELF-CARE
== END 2019-10-19 16:21 | disposition home or self-care (01) | DRG 65 ==
LOC: EC 09:46 → 3SCARD 11:27 → OBSVTOIN 10-18 09:56 → 6NMEDSUR 10-18 11:16
PROVIDERS: ADMIT Hospitalist; ATTEND Hospitalist
DX: I63.81 Other cerebral infarction due to occlusion or stenosis of small artery (principal); G81.94 Hemiplegia, unspecified affecting left nondominant side; Q21.1 Atrial septal defect; E87.1 Hypo-osmolality and hyponatremia; R29.810 Facial weakness; I10 Essential (primary) hypertension; R29.701 NIHSS score 1; Z87.891 Personal history of nicotine dependence; C11.9 Malignant neoplasm of nasopharynx, unspecified; C31.9 Malignant neoplasm of accessory sinus, unspecified; E11.9 Type 2 diabetes mellitus without complications; E78.5 Hyperlipidemia, unspecified; F32.9 Major depressive disorder, single episode, unspecified; G47.33 Obstructive sleep apnea (adult) (pediatric); Z99.89 Dependence on other enabling machines and devices; I67.1 Cerebral aneurysm, nonruptured; K21.9 Gastro-esophageal reflux disease without esophagitis; K76.0 Fatty (change of) liver, not elsewhere classified; Z79.1 Long term (current) use of non-steroidal anti-inflammatories (NSAID); Z79.84 Long term (current) use of oral hypoglycemic drugs; Z79.899 Other long term (current) drug therapy; R11.0 Nausea; T45.1X5A Adverse effect of antineoplastic and immunosuppressive drugs, initial encounter
CPT/HCPCS: 36415; 70450; 70496; 70498; 70553; 71045; 77386; 80053; 80061; 82330; 82533; 82607; 82746; 83036; 83735; 83930; 83935; 84100; 84133; 84300; 84443; 84484; 85025; 85610; 85730; 86140; 87635; 93005; 93306; 93970; 96361; 96374; 96375; 99285

== ENCOUNTER 2019-11-09 08:59 | Emergency (ER) | payer BC ==
[2019-11-09] MEDS ORDERED: SODIUM CHLORIDE 0.9% 1,000 ML IV STA ×2 (09:06)
[2019-11-09] MEDS ORDERED: ONDANSETRON 4 MG/2 ML VIAL IVP STA (09:13)
--- NOTE | 2019-11-09 09:19 | ED ---
Dizziness HPI - General Chief Complaint: Syncope Stated Complaint: Unresponsive Time Seen by Provider: 11/09/19 08:59 Source: patient, police, RN/MD, RN notes reviewed Mode of arrival: wheelchair Limitations: no limitations - History of Present Illness Initial Comments: This is a 41-year-old male with a history of nasopharyngeal cancer who is receiving chemo or therapy and radiation who is had a radiation oncology appointment this morning when he felt cool clammy and passed out briefly he was found have a blood pressure of 90/40. After being put in a horizontal position he did recover and felt much improved the. He did ride to the emergency depa rtment. He does admit that he hasn't been eating and drinking well he occasionally does cough up some blood he was coming from his nasopharyngeal region. He is feeling nauseated. He does state he feels improved. Per witnesses he was out for brief seconds. No injury reported no fevers chills no other symptoms. MD Complaint: other - Related Data Home Medications Medication Instructions Recorded Confirmed Lisinopril [Zestril] 20 mg PO DAILY 08/13/17 10/16/19 Multivitamin [Men's Multi-Vitamin] 1 tab PO DAILY 08/13/17 10/16/19 Nabumetone [Relafen] 750 mg PO BID 08/13/17 10/16/19 Omeprazole 40 mg PO DAILY 08/13/17 10/16/19 Empagliflozin [Jardiance] 25 mg PO DAILY 11/04/18 10/16/19 Aprepitant 80 mg PO DIRECTED 10/16/19 10/16/19 Dexamethasone 4 mg PO DIRECTED 10/16/19 10/16/19 Glucos Sul 2Kcl/MSM/Chond/C/Mn 2 cap PO DAILY 10/16/19 10/16/19 [Glucosamine Chondroitin Cap] OLANZapine [ZyPREXA] 5 mg PO DIRECTED 10/16/19 10/16/19 Ondansetron HCl [Zofran] 8 mg PO Q6H PRN 10/16/19 10/16/19 Vitamin E 1,000 unit PO DAILY 10/16/19 10/16/19 sitaGLIPtin PHOS/metFORMIN HCL 1 tab PO BID 10/16/19 10/16/19 [Janumet 50-1,000 mg Tablet] Previous Rx's Medication Instructions Recorded Aspirin 81 mg PO DAILY #30 chew 10/19/19 Atorvastatin [Lipitor] 40 mg PO HS #30 tab 10/19/19 Clopidogrel [Plavix] 75 mg PO DAILY #30 tab 10/19/19 Magnesium 200 mg PO DAILY #7 tablet 11/09/19 Allergies Allergy/AdvReac Type Severity Reaction Status Date / Time No Known Allergies Allergy Verified 10/16/19 11:53 Review of Systems ROS Statement: Those systems with pertinent positive or pertinent negative responses have been documented in the HPI. ROS Other: All systems not noted in ROS Statement are negative. Past Medical History Past Medical History: Cancer, Diabetes Mellitus, GERD/Reflux, Hyperlipidemia, Hypertension, Osteoarthritis (OA), Sleep Apnea/CPAP/BIPAP Additional Past Medical History / Comment(s): migranes, fatty liver, spontaneous pneumothorax History of Any Multi-Drug Resistant Organisms: None Reported Past Surgical History: Hernia Repair, Orthopedic Surgery Additional Past Surgical History / Comment(s): neck surgery x4 , lung surgery for spontaneous pneumothorax, UPPP SX, Past Anesthesia/Blood Transfusion Reactions: No Reported Reaction Past Psychological History: Depression Smoking Status: Former smoker Past Alcohol Use History: Rare Past Drug Use History: None Reported - Past Family History Mother Family Medical History: No Reported History General Exam - General Exam Comments Initial Comments: This is a well-developed asthenic male who is awake alert oriented 3 Limitations: no limitations General appearance: alert, lethargic Head exam: Present: atraumatic, normocephalic, normal inspection Eye exam: Present: normal appearance, PERRL, EOMI. Absent: scleral icterus, conjunctival injection, periorbital swelling ENT exam: Present: mucous membranes dry, other (Some dry blood seen in the posterior pharynx) Neck exam: Present: normal inspection, full ROM, other (No stridor JVD or bruits). Absent: tenderness, meningismus, lymphadenopathy Respiratory exam: Present: normal lung sounds bilaterally. Absent: respiratory distress, wheezes, rales, rhonchi, stridor Cardiovascular Exam: Present: regular rate, normal rhythm, normal heart sounds. Absent: systolic murmur, diastolic murmur, rubs, gallop, clicks GI/Abdominal exam: Present: soft, normal bowel sounds. Absent: distended, tenderness, guarding, rebound, rigid exam: Present: other (Patient does demonstrate evidence of urinary inconti nence) Extremities exam: Present: normal inspection, full ROM, normal capillary refill. Absent: tenderness, pedal edema, joint swelling, calf tenderness Back exam: Present: normal inspection Neurological exam: Present: alert, oriented X3, CN II-XII intact Psychiatric exam: Present: normal affect, normal mood Skin exam: Present: dry, intact, diaphoretic, pallor. Absent: rash Course Vital Signs 11/09/19 11/09/19 11/09/19 09:01 09:06 09:19 Temperature 97.5 F L Pulse Rate 75 69 Pulse Rate [ 73 Gold Nib Grinder ] Respiratory 12 12 Rate Blood Pressure 113/76 104/87 O2 Sat by Pulse 97 100 Oximetry 11/09/19 11:41 Temperature Pulse Rate 82 Pulse Rate [ Gold Nib Grinder ] Respiratory 17 Rate Blood Pressure 121/96 O2 Sat by Pulse 99 Oximetry - Reevaluation(s) Reevaluation #1: 11/09/19 12:25 Reevaluation patient finds he suddenly much improved after the initial IV fluids. Reevaluation #2: 11/09/19 12:25 Patient did require more fluids and IV supplementation. EKG Findings - EKG Results: EKG: interpreted by BHUMI, sinus rhythm (Sinus rhythm with occasional PVC ventricular rate 70 9 PM 162 QRS 108 QT since QTC 390/447) Medical Decision Making - Medical Decision Making Patient is feeling much improved after IV fluids I did discuss the findings with him and his was present. Patient would like to go home he will be discharged. He is a follow-up with his doctor we did discuss increase oral fluids as much as possible cancer he is experiencing. He will make an attempt to do this he also will be given magnesium supplementation for a week. - Lab Data Result diagrams: 11/09/19 09:05 11/09/19 09:05 Lab Results 11/09/19 11/09/19 11/09/19 Range/Units 09:05 09:05 09:05 WBC 5.6 (3.8-10.6) k/uL RBC 4.67 (4.30-5.90) m/uL Hgb 13.6 (13.0-17.5) gm/dL Hct 39.0 (39.0-53.0) % MCV 83.5 (80.0-100.0) fL MCH 29.2 (25.0-35.0) pg MCHC 34.9 (31.0-37.0) g/dL RDW 13.3 (11.5-15.5) % Plt Count 233 (150-450) k/uL Neutrophils % 74 % Lymphocytes % 8 % Monocytes % 9 % Eosinophils % 5 % Basophils % 1 % Neutrophils # 4.1 (1.3-7.7) k/uL Lymphocytes # 0.4 L (1.0-4.8) k/uL Monocytes # 0.5 (0-1.0) k/uL Eosinophils # 0.3 (0-0.7) k/uL Basophils # 0.0 (0-0.2) k/uL PT 9.9 (9.0-12.0) sec INR 0.9 (<1.2) APTT 19.2 L (22.0-30.0) sec Sodium 134 L (137-145) mmol/L Potassium 4.4 (3.5-5.1) mmol/L Chloride 102 (98-107) mmol/L Carbon Dioxide 20 L (22-30) mmol/L Anion Gap 12 mmol/L BUN 50 H (9-20) mg/dL Creatinine 1.88 H (0.66-1.25) mg/dL Est GFR (CKD-EPI)AfAm 48 (>60 ml/min/1.73 sqM) Est GFR (CKD-EPI)NonAf 42 (>60 ml/min/1.73 sqM) Glucose 182 H (74-99) mg/dL Calcium 9.6 (8.4-10.2) mg/dL Magnesium 1.5 L (1.6-2.3) mg/dL Total Bilirubin 0.7 (0.2-1.3) mg/dL AST 41 (17-59) U/L ALT 62 H (4-49) U/L Alkaline Phosphatase 71 (38-126) U/L Creatine Kinase 24 L (55-170) U/L Troponin I (0.000-0.034) ng/mL Total Protein 6.9 (6.3-8.2) g/dL Albumin 4.0 (3.5-5.0) g/dL Urine Color Urine Appearance (Clear) Urine pH (5.0-8.0) Ur Specific [place] (1.001-1.035) Urine Protein (Negative) Urine Glucose (UA) (Negative) Urine Ketones (Negative) Urine Blood (Negative) Urine Nitrite (Negative) Urine Bilirubin (Negative) Urine Urobilinogen (<2.0) mg/dL Ur Leukocyte Esterase (Negative) 11/09/19 11/09/19 Range/Units 09:05 12:10 WBC (3.8-10.6) k/uL RBC (4.30-5.90) m/uL Hgb (13.0-17.5) gm/dL Hct (39.0-53.0) % MCV (80.0-100.0) fL MCH (25.0-35.0) pg MCHC (31.0-37.0) g/dL RDW (11.5-15.5) % Plt Count (150-450) k/uL Neutrophils % % Lymphocytes % % Monocytes % % Eosinophils % % Basophils % % Neutrophils # (1.3-7.7) k/uL Lymphocytes # (1.0-4.8) k/uL Monocytes # (0-1.0) k/uL Eosinophils # (0-0.7) k/uL Basophils # (0-0.2) k/uL PT (9.0-12.0) sec INR (<1.2) APTT (22.0-30.0) sec Sodium (137-145) mmol/L Potassium (3.5-5.1) mmol/L Chloride (98-107) mmol/L Carbon Dioxide (22-30) mmol/L Anion Gap mmol/L BUN (9-20) mg/dL Creatinine (0.66-1.25) mg/dL Est GFR (CKD-EPI)AfAm (>60 ml/min/1.73 sqM) Est GFR (CKD-EPI)NonAf (>60 ml/min/1.73 sqM) Glucose (74-99) mg/dL Calcium (8.4-10.2) mg/dL Magnesium (1.6-2.3) mg/dL Total Bilirubin (0.2-1.3) mg/dL AST (17-59) U/L ALT (4-49) U/L Alkaline Phosphatase (38-126) U/L Creatine Kinase (55-170) U/L Troponin I <0.012 (0.000-0.034) ng/mL Total Protein (6.3-8.2) g/dL Albumin (3.5-5.0) g/dL Urine Color Light Yellow Urine Appearance Clear (Clear) Urine pH 5.0 (5.0-8.0) Ur Specific [place] 1.014 (1.001-1.035) Urine Protein Trace H (Negative) Urine Glucose (UA) 4+ H (Negative) Urine Ketones Trace H (Negative) Urine Blood Negative (Negative) Urine Nitrite Negative (Negative) Urine Bilirubin Negative (Negative) Urine Urobilinogen <2.0 (<2.0) mg/dL Ur Leukocyte Esterase Negative (Negative) - Radiology Data Radiology results: report reviewed, image reviewed Disposition Clinical Impression: Vasovagal syncope, Dehydration, Squamous cell carcinoma of head and neck Disposition: HOME SELF-CARE Condition: Good Instructions (If sedation given, give patient instructions): Syncope (ED), Dehydration (ED) Prescriptions: Magnesium 200 mg PO DAILY #7 tablet Is patient prescribed a controlled substance at d/c from ED?: No Referrals: Bulmaro Little MD [Primary Care Provider] - 1-2 days
[2019-11-09 09:24] LABS: Basophils % (A) 1 %; Eosinophils # (A) 0.3 k/uL (0-0.7); Eosinophils % (A) 5 %; HGB 13.6 gm/dL (13.0-17.5); Lymphocytes # (A) 0.4 k/uL (1.0-4.8); Lymphocytes % (A) 8 %; MCH 29.2 pg (25.0-35.0); MCHC 34.9 g/dL (31.0-37.0); MCV 83.5 fL (80.0-100.0); Mean Platelet Volume 7.2; Monocytes # (A) 0.5 k/uL (0-1.0); Monocytes % (A) 9 %; Neutrophils # (A) 4.1 k/uL (1.3-7.7); Neutrophils % (A) 74 %; Platelet Count 233 k/uL (150-450); RBC 4.67 m/uL (4.30-5.90); RDW 13.3 % (11.5-15.5); WBC 5.6 k/uL (3.8-10.6)
[2019-11-09 09:35] LABS: Calcium 9.6 mg/dL (8.4-10.2); Magnesium 1.5 mg/dL (1.6-2.3); Potassium 4.4 mmol/L (3.5-5.1); Total Bilirubin 0.7 mg/dL (0.2-1.3); Total Protein 6.9 g/dL (6.3-8.2)
--- NOTE | 2019-11-09 09:41 | XR ---
EXAMINATION TYPE: XR chest 1V portable DATE OF EXAM: 11/09/2019 COMPARISON: 10/16/2019 HISTORY: Chest pain TECHNIQUE: Single frontal view of the chest is obtained. FINDINGS: There is no focal air space opacity, pleural effusion, or pneumothorax seen. The cardiac silhouette size is within normal limits. The osseous structures are intact. IMPRESSION: 1. No acute process.
[2019-11-09 09:43] LABS: INR 0.9 (<1.2); Prothrombin Time 9.9 sec (9.0-12.0)
[2019-11-09 09:45] LABS: Partial Thromboplastin Time 19.2 sec (22.0-30.0)
[2019-11-09] MEDS ORDERED: SODIUM CHLORIDE 0.9% 500 ML 500 ML IV STA (11:23)
[2019-11-09] MEDS ORDERED: MAGNESIUM SULFATE-D5W PMX 1 GM in DEXTROSE/WATER 1 100ML.BAG IVPB ONE (11:23)
[2019-11-09 11:45] VITALS: BP 121/96; PULSE 82; RESP 17
[2019-11-09 12:18] LABS: Appearance,Urine Clear (Clear); Bilirubin,Urine Negative (Negative); Blood,Urine Negative (Negative); Color,Urine Light Yellow; Glucose,Urine (UA) 4+ (Negative); Ketones,Urine Trace (Negative); Leukocyte Esterase,Urine Negative (Negative); Nitrite,Urine Negative (Negative); Protein,Urine Trace (Negative); Specific Gravity,Urine 1.014 (1.001-1.035); Urobilinogen,Urine <2.0 mg/dL (<2.0)
[2019-11-09 12:53] VITALS: TEMP 98.3
== END 2019-11-09 12:53 | disposition home or self-care (01) ==
LOC: EC 08:59
DX: C76.0 Malignant neoplasm of head, face and neck (principal); E86.0 Dehydration; R55 Syncope and collapse; I10 Essential (primary) hypertension; E11.9 Type 2 diabetes mellitus without complications; K21.9 Gastro-esophageal reflux disease without esophagitis; G47.30 Sleep apnea, unspecified; Z79.899 Other long term (current) drug therapy; Z79.84 Long term (current) use of oral hypoglycemic drugs; Z87.891 Personal history of nicotine dependence; Z99.89 Dependence on other enabling machines and devices
CPT/HCPCS: 36415; 93005; 80053; 82550; 83735; 84484; 85025; 85610; 85730; 81003; 71045; 99284; 96365; 96375; 96361 ×2; J2405; J3475

== ENCOUNTER → 2020-02-11 | Outpatient (CLI) | payer BC ==
--- NOTE | 2020-02-13 17:59 | PE ---
Nuclear medicine PET/CT HISTORY: Nasopharyngeal carcinoma, subsequent Patient received 7.9 mCi F-18 FDG intravenously in delayed scanning was performed from the skull base to the mid thighs. Localization and attenuation correction CT scan was performed. Small [id number] imaging obtained through the head and neck Correlation to prior nuclear medicine PET/CT 09/27/2019 Head and neck: The previously identified posterior nasopharyngeal activity is no longer seen on the c urrent exam. There is no evident adenopathy. No supraclavicular adenopathy. CHEST: No mediastinal, axillary, or hilar adenopathy. There is no evident lung mass. No pleural or pe ricardial effusion. ABDOMEN: No retroperitoneal adenopathy or liver mass is evident. No ascites. Uptake within the bowel is likely physiologic. Osseous structures are within normal limits. IMPRESSION: Findings likely represent treatment response in the posterior nasopharynx.
== END | disposition home or self-care (01) ==
LOC: RADPETMAIN 13:38
PROVIDERS: ATTEND Internal Medicine Hematology & Oncology
DX: C11.9 Malignant neoplasm of nasopharynx, unspecified (principal)
CPT/HCPCS: 78815; A9552

== ENCOUNTER → 2020-09-08 | Outpatient (CLI) | payer BC ==
--- NOTE | 2020-09-09 13:20 | PE ---
EXAMINATION TYPE: PET CT fusion skull to thigh DATE OF EXAM: 09/08/2020 COMPARISON: Prior PET CTs February 11, 2020 and older studies September 27, 2019. HISTORY: Nasopharyngeal cancer diagnosed August 2019 treated with radiation and chemotherapy throug h December 2019. TECHNIQUE: Following the intravenous administration of 10.55 mCi of F-18 FDG, whole body images are performed from the skull base to the midthigh. Images are reviewed on the computer in the coronal, a xial, and sagittal planes. Reconstructed rotating images are created on independent workstation and reviewed on the computer. A localization and attenuation correction CT is performed in conjunction with the PET scan. Dedicated PET/CT imaging of the neck is again performed. Blood glucose level equal s 97. SCAN: Subsequent Scan FINDINGS: SKULL BASE AND NECK: No new or recurrent hypermetabolic uptake identified with particular attention to the right posterior nasopharynx at the area of original neoplasm. CHEST, MEDIASTINUM, AND HILAR REGION: No new hypermetabolic uptake. ABDOMEN AND PELVIS: No new hypermetabolic uptake. OSSEOUS STRUCTURES: No new hypermetabolic uptake. OTHER CT: Postsurgical change of cervical spine is redemonstrated. Persistent low lung volumes and ca rdiomegaly. Persistent enlarged main pulmonary artery, CT findings suggesting underlying pulmonary ar [place] hypertension. Small-sized hiatal hernia. Scattered bilateral pelvic phleboliths. Small fat-containing bilateral ing uinal hernias. IMPRESSION: No new suspicious hypermetabolic uptake to suggest active neoplastic recurrence.
== END ==
LOC: RADPETMAIN 08:22
PROVIDERS: ATTEND Internal Medicine Hematology & Oncology
DX: C76.0 Malignant neoplasm of head, face and neck (principal)
CPT/HCPCS: 78815; A9552

== ENCOUNTER → 2021-09-14 | Outpatient (CLI) | payer BC ==
--- NOTE | 2021-09-14 22:06 | PE ---
EXAMINATION TYPE: PET CT fusion skull to thigh DATE OF EXAM: 09/14/2021 COMPARISON: Most recent PET CT September 08, 2020 and older studies HISTORY: Head and neck cancer progress study TECHNIQUE: Following the intravenous administration of 9.77 mCi of F-18 FDG, whole body images are p erformed from the skull base to the midthigh. Images are reviewed on the computer in the coronal, ax ial, and sagittal planes. Reconstructed rotating images are created on independent workstation and r eviewed on the computer. A localization and attenuation correction CT is performed in conjunction w ith the PET scan. Dedicated PET/CT imaging of the neck is performed. The blood glucose level equals 9 8. SCAN: Subsequent Scan FINDINGS: SKULL BASE AND NECK: No new or recurrent hypermetabolic uptake identified with particular attention to the right posterior nasopharynx at the area of original neoplasm. CHEST, MEDIASTINUM, AND HILAR REGION: No new areas of hypermetabolic uptake. ABDOMEN AND PELVIS: No new areas of hypermetabolic uptake. OSSEOUS STRUCTURES: No new areas of hypermetabolic uptake. OTHER CT: Postsurgical change of cervical spine is redemonstrated. Persistent low lung volumes and ca rdiomegaly. Persistent enlarged main pulmonary artery, CT finding suggesting underlying pulmonary art kailash hypertension. Scattered bilateral pelvic phleboliths. Small fat-containing left greater than right bilateral inguin al hernias redemonstrated. IMPRESSION: No new suspicious hypermetabolic uptake to suggest active neoplastic recurrence. No signi ficant change from most recent PET/CT.
== END | disposition home or self-care (01) ==
LOC: RADPETMAIN 16:24
PROVIDERS: ATTEND Internal Medicine Hematology & Oncology
DX: C76.0 Malignant neoplasm of head, face and neck (principal)
CPT/HCPCS: 78815; A9552

== ENCOUNTER → 2022-12-30 | Day surgery (SDC) | payer BC ==
[2022-12-27 08:41] VITALS: BMI 31.1
[~2022-12-30] MED LIST changes: +DEXAMETHASONE SOD PHOSPHATE 4 MG/ML 1 ML VIAL IV ONE; +HYDROmorphone 0.5 MG/0.5 ML SYRINGE IVP PRN; +LACTATED RINGERS 1,000 ML IV SCH; -LIDOCAINE 1% 20 ML VIAL (10MG/ML) FOR IV START INTRADERMA PRN; +ONDANSETRON 4 MG/2 ML VIAL IVP ONE; +PROPOFOL 10 MG/ML 20 ML VIAL IV ONE
[2022-12-30 12:19] VITALS: TEMP 97.9
[2022-12-30 12:28] LABS: Glucose,Whole Blood 129 mg/dL (70-110)
--- NOTE | 2022-12-30 13:01 | P.GSHP ---
History of Present Illness H&P Date: 12/30/22 Chief Complaint: history of colon polyps this is a 52-year-old male presents today for colonoscopy. Patienpatient has a History of colon polyps. His last colonoscopy his prostate 5 years ago. Past Medical History Past Medical History: Cancer, Diabetes Mellitus, GERD/Reflux, Hyperlipidemia, Hypertension, Osteoarthritis (OA) Additional Past Medical History / Comment(s): migranes, fatty liver, sleep apnea resolved with surgery., spontaneous pneumothorax, Throat cancer- receiving chemo and radiation tx., History of Any Multi-Drug Resistant Organisms: None Reported Past Surgical History: Appendectomy, Hernia Repair, Orthopedic Surgery Additional Past Surgical History / Comment(s): neck surgery x4 , lung surgery for spontaneous pneumothorax, UPPP SX, COLONOSCOPY, Past Anesthesia/Blood Transfusion Reactions: No Reported Reaction Additional Past Anesthesia/Blood Transfusion Reaction / Comment(s): FATHER HAD HALLUCINATIONS Smoking Status: Former smoker - Past Family History Mother Family Medical History: No Reported History Medications and Allergies Home Medications Medication Instructions Recorded Confirmed Type Multivitamin [Men's Multi-Vitamin] 1 tab PO DAILY 08/13/17 12/30/22 History Nabumetone [Relafen] 750 mg PO BID 08/13/17 12/30/22 History Omeprazole 40 mg PO DAILY 08/13/17 12/30/22 History lisinopriL [Zestril] 20 mg PO DAILY 08/13/17 12/30/22 History Glucos Sul 2Kcl/MSM/Chond/C/Mn 2 cap PO DAILY 10/16/19 12/30/22 History [Glucosamine Chondroitin Cap] Aspirin 81 mg PO DAILY #30 chew 10/19/19 12/27/22 Rx HYDROcodone/APAP 5-325MG [Labelle 1 tab PO BID PRN 12/27/22 12/30/22 History 5-325] Levothyroxine Sodium 25 mcg PO DAILY 12/27/22 12/30/22 History sitaGLIPtin [Januvia] 100 mg PO DAILY 12/27/22 12/30/22 History Allergies Allergy/AdvReac Type Severity Reaction Status Date / Time No Known Allergies Allergy Verified 12/30/22 12:10 Surgical - Exam Vital Signs Temp Pulse Resp BP Pulse Ox 97.9 F 69 18 147/97 97 12/30/22 12:16 12/30/22 12:16 12/30/22 12:16 12/30/22 12:16 12/30/22 12:16 - General well developed, well nourished, no distress - Eyes PERRL - ENT normal pinna - Neck no masses - Respiratory normal expansion - Cardiovascular Rhythm: regular - Abdomen Abdomen: soft, non tender Results - Labs Abnormal Lab Results - Last 24 Hours (Table) 12/30/22 Range/Units 12:26 POC Glucose (mg/dL) 129 H (70-110) mg/dL Assessment and Plan Assessment: history of colon polyps. We'll perform colonoscopy.
--- NOTE | 2022-12-30 13:19 | P.OP ---
Date of Procedure: 12/30/22 Preoperative Diagnosis: history of colon polyps Postoperative Diagnosis: right colon polyp Procedure(s) Performed: colonoscopy Anesthesia: MAC Surgeon: Goldy Kaye Pathology: other (right colon polyp) Condition: stable Disposition: PACU Description of Procedure: the patient's placed on the endoscopy table in the lateral position. He received IV sedation. Digital rectal exam was performed. This revealed no abnormalities. The flexible colonoscope was then placed patient anus and passed throughout the entire colon. The ileocecal valve was visually is. The cecum, ascending colon was examined. In the right colon there was a small peduncular polyp. This removed with the snare. The remaining right colon, transverse colon and descending colon appeared normal. The scope was then brought back the rectum and this appeared normal. Scope withdrawn for patient.
[2022-12-30 13:27] VITALS: RESP 16
[2022-12-30 13:46] VITALS: BP 124/78; PULSE 59
== END ==
LOC: ORWHC2ENDO 11:52
PROVIDERS: ATTEND Surgery
DX: Z12.11 Encounter for screening for malignant neoplasm of colon (principal); D12.2 Benign neoplasm of ascending colon; I10 Essential (primary) hypertension; E78.5 Hyperlipidemia, unspecified; E11.9 Type 2 diabetes mellitus without complications; K21.9 Gastro-esophageal reflux disease without esophagitis; K76.0 Fatty (change of) liver, not elsewhere classified; G43.909 Migraine, unspecified, not intractable, without status migrainosus; G47.33 Obstructive sleep apnea (adult) (pediatric); Z87.891 Personal history of nicotine dependence; M19.90 Unspecified osteoarthritis, unspecified site; J93.83 Other pneumothorax; Z85.21 Personal history of malignant neoplasm of larynx; Z92.21 Personal history of antineoplastic chemotherapy; Z92.3 Personal history of irradiation; Z90.49 Acquired absence of other specified parts of digestive tract; Z79.82 Long term (current) use of aspirin; Z79.84 Long term (current) use of oral hypoglycemic drugs; Z79.890 Hormone replacement therapy; Z79.899 Other long term (current) drug therapy
CPT/HCPCS: 88305; 45385; J2704

== ENCOUNTER → 2024-01-27 | Outpatient (CLI) | payer BC ==
[2024-01-27 15:01] LABS: Basophils # (A) 0.06 X 10*3/uL (0.00-0.10); Basophils % (A) 1.2 %; Eosinophils # (A) 0.14 X 10*3/uL (0.04-0.35); Eosinophils % (A) 2.7 %; HCT 41.5 % (39.6-50.0); HGB 13.8 g/dL (13.0-17.0); Lymphocytes # (A) 0.93 X 10*3/uL (0.90-5.00); Lymphocytes % (A) 17.9 %; MCH 28.7 pg (27.0-32.0); MCHC 33.3 g/dL (32.0-37.0); MCV 86.3 FL (80.0-97.0); Mean Platelet Volume 12.4 FL (9.5-12.2); Monocytes # (A) 0.71 X 10*3/uL (0.20-1.00); Monocytes % (A) 13.7 %; NRBC Per 100 WBC 0 X 10*3/uL (0.00-0.01); Neutrophils # (A) 3.34 X 10*3/uL (1.80-7.70); Neutrophils % (A) 64.1 %; Platelet Count 201 X 10*3/uL (140-440); RBC 4.81 X 10*6/uL (4.40-5.60); RDW 13.3 % (11.5-14.5)
[2024-01-27 16:05] LABS: BUN/Creat Ratio 11.42 Ratio (12.00-20.00); Blood Urea Nitrogen 13.7 mg/dL (9.0-27.0); Calcium 9.6 mg/dL (8.7-10.3); Carbon Dioxide 23.4 mmol/L (21.6-31.8); Chloride 105 mmol/L (96-109); Glucose 129 mg/dL (70-110); Potassium 4.2 mmol/L (3.5-5.5); Sodium 140 mmol/L (135-145)
== END | disposition home or self-care (01) ==
LOC: LABPAT 07:48
PROVIDERS: ATTEND Orthopaedic Surgery Hand Surgery
DX: Z01.812 Encounter for preprocedural laboratory examination (principal); M65.341 Trigger finger, right ring finger
CPT/HCPCS: 80048; 85025

== ENCOUNTER 2024-08-27 17:45 | Emergency (ER) | payer BC ==
[2024-08-27 19:07] LABS: Basophils # (A) 0.1 k/uL (0-0.2); Basophils % (A) 0 %; Eosinophils # (A) 0.1 k/uL (0-0.7); Eosinophils % (A) 1 %; HCT 45.3 % (39.0-53.0); HGB 15.2 gm/dL (13.0-17.5); Lymphocytes # (A) 1.3 k/uL (1.0-4.8); Lymphocytes % (A) 8 %; MCH 28.6 pg (25.0-35.0); MCHC 33.5 g/dL (31.0-37.0); MCV 85.4 fL (80.0-100.0); Mean Platelet Volume 7.6; Monocytes # (A) 1.1 k/uL (0-1.0); Monocytes % (A) 7 %; Neutrophils # (A) 13.4 k/uL (1.3-7.7); Neutrophils % (A) 83 %; Platelet Count 285 k/uL (150-450); RBC 5.31 m/uL (4.30-5.90); WBC 16.1 k/uL (3.8-10.6)
[2024-08-27 19:15] LABS: ALT 22 U/L (4-49); AST 19 U/L (17-59); African American GFR (CKD) >90 (>60 ml/min/1.73 sqM); Albumin 4.7 g/dL (3.5-5.0); Alkaline Phosphatase 93 U/L (38-126); Anion Gap 13 mmol/L; Blood Urea Nitrogen 18 mg/dL (9-20); Calcium 10.3 mg/dL (8.4-10.2); Carbon Dioxide 28 mmol/L (22-30); Chloride 94 mmol/L (98-107); Creatine Kinase 46 U/L (55-170); Glucose 182 mg/dL (74-99); Non-African American GFR(CKD) 83 (>60 ml/min/1.73 sqM); Partial Thromboplastin Time 22.9 sec (22.0-30.0); Potassium 4.4 mmol/L (3.5-5.1); Prothrombin Time 10.9 sec (10.0-12.5); Sodium 135 mmol/L (137-145); Total Bilirubin 0.9 mg/dL (0.2-1.3); Total Protein 7.7 g/dL (6.3-8.2)
--- NOTE | 2024-08-27 19:44 | XR ---
EXAMINATION TYPE: XR chest 2V DATE OF EXAM: 08/27/2024 7:37 PM COMPARISON: 11/09/2019 CLINICAL INDICATION: Male, 54 years old with history of altered mental status, TECHNIQUE: XR chest 2V view(s) obtained. FINDINGS: The heart size is normal. The pulmonary vasculature is normal. The lungs are clear. IMPRESSION: 1. No acute pulmonary process. [facility], , 08/27/2024 7:42 PM
--- NOTE | 2024-08-27 19:51 | CT ---
EXAMINATION TYPE: CT brain wo con DATE OF EXAM: 08/27/2024 7:42 PM COMPARISON: MRI brain 10/17/2019 CLINICAL INDICATION: Male, 54 years old with history of Neuro deficit, acute, stroke suspected, NUMBN ESS IN RIGHT ARM AND FACE/ HX FACE AND HEAD CA TECHNIQUE: CT of the brain is performed utilizing 3 mm thick sections through the posterior fossa and 3 mm thick sections through the remaining calvarium. Study is performed within 24 hours of arrival to the hospital. Contrast used: mL of , (none if empty) CT DLP: 1075 mGycm, Automated exposure control for dose reduction was used. FINDINGS: No abnormal hyperdensity is present to suggest an acute intracranial hemorrhage. No mass lesion is evident. No acute infarcts are evident. Ventricles and sulci are appropriate for the patient age. Paranasal sinuses and mastoid air cells within the [id number] are clear. IMPRESSION: 1. No acute intracranial process. Follow up MRI can be performed as clinically indicated. [facility], , 08/27/2024 7:49 PM
[2024-08-27] MEDS: SODIUM CHLORIDE 0.9% 1,000 ML IV ONE (20:22)
--- NOTE | 2024-08-27 20:28 | ED ---
General Adult HPI - General Chief complaint: Neuro Symptoms/Deficit Stated complaint: facial numbness Time Seen by Provider: 08/27/24 18:31 Source: patient Mode of arrival: ambulatory Limitations: no limitations - History of Present Illness Initial comments: This patient is a 54-year-old man who presents to have evaluation for facial and arm numbness. Patient noted that it started last night and initially involved the perioral area bilaterally. He subsequently noticed that it seemed to be more prominent on the right and he states that it seems to be affecting the right side of his body today. He has not noted weakness. No change in vision, speech, swallowing. No headache. No fever or chills. No neck pain or stiffness Onset/Timin -: hour(s) Location: face, right, upper extremity Radiation: non-radiation Consistency: constant Improves with: none Worsens with: none Treatments Prior to Arrival: none - Related Data Home Medications Medication Instructions Recorded Confirmed Multivitamin [Men's Multi-Vitamin] 1 tab PO DAILY 08/13/17 08/27/24 Nabumetone [Relafen] 750 mg PO BID 08/13/17 08/27/24 Omeprazole 40 mg PO DAILY 08/13/17 08/27/24 Glucos Sul 2Kcl/MSM/Chond/C/Mn 2 cap PO DAILY 10/16/19 08/27/24 [Glucosamine Chondroitin Cap] Levothyroxine Sodium 25 mcg PO DAILY 12/27/22 08/27/24 sitaGLIPtin [Januvia] 100 mg PO DAILY 12/27/22 08/27/24 Atorvastatin [Lipitor] 10 mg PO DAILY 08/27/24 08/27/24 SUMAtriptan succinate [Imitrex] 50 mg PO DAILY PRN 08/27/24 08/27/24 Tirzepatide [Mounjaro] 2.5 mg SQ WE 08/27/24 08/27/24 Vitamin D3(Unknown Dose) 1 tab PO DAILY 08/27/24 08/27/24 Vitamin E (Dl,Tocopheryl Acet) 400 unit PO DAILY 08/27/24 08/27/24 [Vitamin E (400 Iu = 180 mg)] Allergies Allergy/AdvReac Type Severity Reaction Status Date / Time No Known Allergies Allergy Verified 08/27/24 21:13 Review of Systems ROS Statement: Those systems with pertinent positive or pertinent negative responses have been documented in the HPI. ROS Other: All systems not noted in ROS Statement are negative. Constitutional: Denies: fever, chills, weakness Eyes: Denies: eye pain, vision change ENT: Reports: ear pain. Denies: hearing loss Respiratory: Denies: cough, dyspnea Cardiovascular: Denies: chest pain, palpitations, edema, syncope Gastrointestinal: Reports: nausea. Denies: abdominal pain, vomiting, diarrhea Genitourinary: Denies: dysuria, hematuria Musculoskeletal: Denies: back pain Skin: Denies: rash Neurological: Reports: numbness, paresthesias. Denies: headache, weakness Past Medical History Past Medical History: Cancer, Diabetes Mellitus, GERD/Reflux, Hyperlipidemia, Hypertension, Osteoarthritis (OA) Additional Past Medical History / Comment(s): migranes, fatty liver, sleep apnea resolved with surgery., spontaneous pneumothorax, Throat cancer- receiving chemo and radiation tx., History of Any Multi-Drug Resistant Organisms: None Reported Past Surgical History: Appendectomy, Hernia Repair, Orthopedic Surgery Additional Past Surgical History / Comment(s): neck surgery x4 , lung surgery for spontaneous pneumothorax, UPPP SX, COLONOSCOPY, Past Anesthesia/Blood Transfusion Reactions: No Reported Reaction Additional Past Anesthesia/Blood Transfusion Reaction / Comment(s): FATHER HAD HALLUCINATIONS Past Psychological History: No Psychological Hx Reported Smoking Status: Former smoker Past Alcohol Use History: None Reported Past Drug Use History: None Reported - Past Family History Mother Family Medical History: No Reported History General Exam Limitations: no limitations General appearance: alert, in no apparent distress Head exam: Present: atraumatic, normocephalic Eye exam: Present: normal appearance. Absent: scleral icterus, conjunctival injection ENT exam: Present: normal oropharynx, TM's normal bilaterally, normal external ear exam Neck exam: Present: normal inspection, full ROM. Absent: meningismus Respiratory exam: Present: normal lung sounds bilaterally. Absent: respiratory distress, wheezes, rales, rhonchi, stridor, accessory muscle use Cardiovascular Exam: Present: regular rate, normal rhythm, normal heart sounds. Absent: systolic murmur, diastolic murmur, rubs, gallop GI/Abdominal exam: Present: soft. Absent: distended, tenderness, guarding Extremities exam: Present: normal inspection, normal capillary refill. Absent: pedal edema Back exam: Present: normal inspection Neurological exam: Present: alert, oriented X3, CN II-XII intact. Absent: motor sensory deficit Skin exam: Present: warm, dry, intact, normal color. Absent: rash Course Vital Signs 08/27/24 08/27/24 08/27/24 17:51 19:23 21:00 Temperature 97.8 F Pulse Rate 76 67 58 L Respiratory 18 20 20 Rate Blood Pressure 124/83 131/93 151/91 O2 Sat by Pulse 98 97 97 Oximetry 08/27/24 08/27/24 08/27/24 22:00 22:44 23:15 Temperature 98.4 F Pulse Rate 63 62 74 Respiratory 19 20 19 Rate Blood Pressure 129/90 144/96 O2 Sat by Pulse 97 Oximetry EKG Findings - EKG Results: EKG: interpreted by ERMD, sinus rhythm (With occasional PVC, rate 65 bpm), normal axis - Blocks, [place], Hypertrophy, ST Abn: Chamber hypertrophy or enlargement: only voltage criteria for left ventricular hypertrophy Medical Decision Making - Medical Decision Making The patient had chest x-ray that I interpreted as negative for acute infiltrate, pneumothorax, congestive heart failure The patient had CT scan of the brain that I interpreted as negative for acute bony injury, negative for mass effect or midline shift. Was pt. sent in by a medical professional or institution (, PA, WAITSTAFF CAPTAIN, urgent care, hospital, or half-way...) When possible be specific @ -[No] Did you speak to anyone other than the patient for history (EMS, parent, family, police, friend...)? What history was obtained from this source @ -[No] Did you review nursing and triage notes (agree or disagree)? Why? @ -[I reviewed and agree with nursing and triage notes] Were old charts reviewed (outside hosp., previous admission, EMS record, old EKG, old radiological studies, urgent care reports/EKG's, half-way records)? Report findings @ -[No old charts were reviewed] Differential Diagnosis (chest pain, altered mental status, abdominal pain women, abdominal pain men, vaginal bleeding, weakness, fever, dyspnea, syncope, headache, dizziness, GI bleed, back pain, seizure, CVA, palpatations, mental health, musculoskeletal)? @ -[Differential CVA Ischemic stroke, hemorrhagic stroke, brain tumor, atypical migraine, Wernicke's encephalopathy, seizure, multiple sclerosis, meningitis, encephalitis, hypoglycemia, Guillain-Tovar, electrolytes disturbance, myasthenia gravis.... This is not meant to be an all-inclusive list EKG interpreted by me (3pts min.). @ -[As above] X-rays interpreted by me (1pt min.). @ -[I interpreted as above CT interpreted by me (1pt min.). @ -[I interpreted as above U/S interpreted by me (1pt. min.). @ -[None done] What testing was considered but not performed or refused? (CT, X-rays, U/S, labs)? Why? @ -[None] What meds were considered but not given or refused? Why? @ -[None] Did you discuss the management of the patient with other professionals ( professionals i.e. , PA, WAITSTAFF CAPTAIN, lab, RT, psych nurse, social services, office clerk, teacher, police officer, nurse outreach case manager)? Give summary @ -[No] Was smoking cessation discussed for >3mins.? @ -[No] Was critical care preformed (if so, how long)? @ -[No] Were there social determinants of health that impacted care today? How? (Homelessness, low income, unemployed, alcoholism, drug addiction, transportati on, low edu. Level, literacy, decrease access to med. care, [facility], rehab)? @ -[No] Was there de-escalation of care discussed even if they declined (Discuss DNR or withdrawal of care, Hospice)? DNR status @ -[No] What co-morbidities impacted this encounter? (DM, HTN, Smoking, COPD, CAD, Cancer, CVA, ARF, Chemo, Hep., AIDS, mental health diagnosis, sleep apnea, morbid obesity)? @ -[Diabetes Was patient admitted / discharged? Hospital course, mention meds given and route, prescriptions, significant lab abnormalities, going to OR and other pertinent info. @ -[Patient is a 54-year-old man presenting to have evaluation for paresthesias initially bilateral perioral now mainly on the right side. The exam and workup are unremarkable. At this point patient stable to have further workup as outpa tient. Discussed appropriate further care and follow-up as well as return parameters. Undiagnosed new problem with uncertain prognosis? @ -[No] Drug Therapy requiring intensive monitoring for toxicity (Heparin, Nitro, Insulin, Cardizem)? @ -[No] Were any procedures done? @ -[No] Diagnosis/symptom? @ -[Acute paresthesia Acute hyperglycemia Acute, or Chronic, or Acute on Chronic? @ -[Acute Uncomplicated (without systemic symptoms) or Complicated (systemic symptoms)? @ -[Uncomplicated Side effects of treatment? @ -[No] Exacerbation, Progression, or Severe Exacerbation? @ -[No] Poses a threat to life or bodily function? How? (Chest pain, [place], [place], pneumonia, PE, COPD, DKA, ARF, appy, cholecystitis, CVA, Diverticulitis, Homicidal, Suicidal, threat to staff... and all critical care pts) @ -[No] All treatments are based on ideal body weight as in ED triage - Lab Data Result diagrams: 08/27/24 19:00 08/27/24 19:00 Lab Results 08/27/24 08/27/24 08/27/24 Range/Units 19:00 19:00 19:00 WBC 16.1 H (3.8-10.6) k/uL RBC 5.31 (4.30-5.90) m/uL Hgb 15.2 (13.0-17.5) gm/dL Hct 45.3 (39.0-53.0) % MCV 85.4 (80.0-100.0) fL MCH 28.6 (25.0-35.0) pg MCHC 33.5 (31.0-37.0) g/dL RDW 13.0 (11.5-15.5) % Plt Count 285 (150-450) k/uL MPV 7.6 Neutrophils % 83 % Lymphocytes % 8 % Monocytes % 7 % Eosinophils % 1 % Basophils % 0 % Neutrophils # 13.4 H (1.3-7.7) k/uL Lymphocytes # 1.3 (1.0-4.8) k/uL Monocytes # 1.1 H (0-1.0) k/uL Eosinophils # 0.1 (0-0.7) k/uL Basophils # 0.1 (0-0.2) k/uL PT 10.9 (10.0-12.5) sec INR 1.0 (<1.2) APTT 22.9 (22.0-30.0) sec Sodium 135 L (137-145) mmol/L Potassium 4.4 (3.5-5.1) mmol/L Chloride 94 L (98-107) mmol/L Carbon Dioxide 28 (22-30) mmol/L Anion Gap 13 mmol/L BUN 18 (9-20) mg/dL Creatinine 1.03 (0.66-1.25) mg/dL Est GFR (CKD-EPI)AfAm >90 (>60 ml/min/1.73 sqM) Est GFR (CKD-EPI)NonAf 83 (>60 ml/min/1.73 sqM) Glucose 182 H (74-99) mg/dL Calcium 10.3 H (8.4-10.2) mg/dL Total Bilirubin 0.9 (0.2-1.3) mg/dL AST 19 (17-59) U/L ALT 22 (4-49) U/L Alkaline Phosphatase 93 (38-126) U/L Creatine Kinase 46 L (55-170) U/L Troponin I (0.000-0.034) ng/mL Total Protein 7.7 (6.3-8.2) g/dL Albumin 4.7 (3.5-5.0) g/dL 08/27/24 Range/Units 19:00 WBC (3.8-10.6) k/uL RBC (4.30-5.90) m/uL Hgb (13.0-17.5) gm/dL Hct (39.0-53.0) % MCV (80.0-100.0) fL MCH (25.0-35.0) pg MCHC (31.0-37.0) g/dL RDW (11.5-15.5) % Plt Count (150-450) k/uL MPV Neutrophils % % Lymphocytes % % Monocytes % % Eosinophils % % Basophils % % Neutrophils # (1.3-7.7) k/uL Lymphocytes # (1.0-4.8) k/uL Monocytes # (0-1.0) k/uL Eosinophils # (0-0.7) k/uL Basophils # (0-0.2) k/uL PT (10.0-12.5) sec INR (<1.2) APTT (22.0-30.0) sec Sodium (137-145) mmol/L Potassium (3.5-5.1) mmol/L Chloride (98-107) mmol/L Carbon Dioxide (22-30) mmol/L Anion Gap mmol/L BUN (9-20) mg/dL Creatinine (0.66-1.25) mg/dL Est GFR (CKD-EPI)AfAm (>60 ml/min/1.73 sqM) Est GFR (CKD-EPI)NonAf (>60 ml/min/1.73 sqM) Glucose (74-99) mg/dL Calcium (8.4-10.2) mg/dL Total Bilirubin (0.2-1.3) mg/dL AST (17-59) U/L ALT (4-49) U/L Alkaline Phosphatase (38-126) U/L Creatine Kinase (55-170) U/L Troponin I <0.012 (0.000-0.034) ng/mL Total Protein (6.3-8.2) g/dL Albumin (3.5-5.0) g/dL Disposition Clinical Impression: Paresthesia, Hyperglycemia Disposition: HOME SELF-CARE Condition: Good Instructions (If sedation given, give patient instructions): Paresthesia (ED), Diabetic Hyperglycemia (ED) Is patient prescribed a controlled substance at d/c from ED?: No Referrals: Wesley Rushing DO [Primary Care Provider] - 1-2 days
[2024-08-27 23:16] VITALS: BP 144/96; PULSE 74; RESP 19; TEMP 98.4
== END 2024-08-27 23:14 | disposition home or self-care (01) ==
LOC: EC 17:45
DX: R20.2 Paresthesia of skin (principal); E11.65 Type 2 diabetes mellitus with hyperglycemia; Z87.891 Personal history of nicotine dependence
CPT/HCPCS: 36415; 70450; 71046; 80053; 82550; 84484; 85025; 85610; 85730; 93005; 96360; 99285